=== PATIENT | female | born 1945 | race African-American/Black ===

== ENCOUNTER 2016-08-21 03:58 | Emergency (ER) | payer MEDICARE, OTHER ==
[~2016-08-21] VITALS: Ht 152.4 cm; Wt 67.6 kg
[~2016-08-21 03:58] MED LIST: ALBUTEROL SULF8.5 GM INH; ALDACTAZIDE 251 EACH ORAL; ASPIR-LOW81 MG ORAL; ASPIRIN325 MG ORAL; ATORVASTATIN CA80 MG ORAL; BENADRYL25 MG ORAL; CARVEDILOL12.5 MG ORAL; COREG25 MG ORAL; CYCLOBENZAPRINE10 MG ORAL; DIOVAN160 MG ORAL; DIOVAN320 MG ORAL; DIOVAN80 MG ORAL; DOXAZOSIN MESYLA1 MG ORAL; GABAPENTIN300 MG ORAL; GLIPIZIDE5 MG ORAL; GUANFACINE HCL1 MG PO; IBUPROFEN600 MG ORAL; JANUVIA100 MG ORAL; KENALOG 0.1% LO60 ML APPLIC; LANTUS SOL100 UNIT/1 SUBQ; MEDROL DOSEPAK4 MG ORAL; METFORMIN HCL500 M1 ORAL; NITROFURANTOIN100 M2 ORAL; OMEPRAZOLE20 M3 ORAL; ROBAXIN500 MG PO; SPIRONOLACTONE1 EACH ORAL; STARLIX60 MG ORAL; TENEX2 MG PO; TRADJENTA5 MG PO; TRAMADOL HCL50 MG ORAL; ZITHROMAX250 MG ORAL
[2016-08-21] MEDS ORDERED: Morphine Sulfate 10mg/ml Inj IM ONE (04:30)
--- NOTE | 2016-08-21 05:02 | Emergency Room Report ---
History of Present Illness General Chief Complaint: Lower Back Pain or Injury Source: Patient Present Illness HPI Patient presents with complaints of right lower back pain Points the right posterior superior iliac crest for the discomfort Pain has come on over the past several days slowly Worse with bending forward Describes as 4/10 Denies any chest pain or shortness of breath denies any loss of control of bowel urination Denies any saddle paresthesia Patient reports taking Otto, and Tylenol Extra Strength without much relief Allergies: Coded Allergies: ASHWIN INHIBITORS (Unverified Allergy, Unknown, 03/14/16) PENICILLINS (Verified Allergy, Unknown, 08/21/16) Uncoded Allergies: CALCIUM CHANNEL BLOCKERS (Allergy, Unknown, 03/14/16) DIHYDROPYRIDINES (Allergy, Unknown, 03/14/16) Patient History Past Medical History: see triage record Pertinent Family History: none Last Menstrual Period: n/a Reviewed Nursing Documentation: PMH: Agreed, PSxH: Agreed Nursing Documentation-PMH Hx Cardiac Problems: Yes - DVT(Rt leg), IVC filter insertion in 11/2014 Hx Hypertension: Yes Hx Diabetes: Yes Hx Gastrointestinal Problems: No - Fibroid removal in 1979 Review of Systems All Other Systems: negative except mentioned in HPI Physical Exam Vital Signs Date Time Temp Pulse Resp B/P Pulse Ox O2 Delivery O2 Flow Rate FiO2 08/21/16 04:11 98.6 86 16 182/92 98 Room Air Sp02 EP Interpretation: reviewed, normal General Appearance: well appearing, no apparent distress Head: normocephalic, atraumatic Eyes: bilateral eye EOMI, bilateral eye PERRL ENT: hearing grossly normal, normal pharynx, TMs + canals normal, uvula midline Neck: full range of motion, supple, no meningismus, no bony tend Respiratory: lungs clear, normal breath sounds, no rhonchi, no respiratory distress, no retraction, no accessory muscle use Cardiovascular #1: normal peripheral pulses, regular rate, rhythm, no edema, no gallop, no JVD, no murmur Gastrointestinal: normal bowel sounds, non tender, soft, no mass, no organomegaly, non-distended, no guarding, no hernia, no pulsatile mass, no rebound Genitourinary: no CVA tenderness Musculoskeletal: other - Discomfort on palpation of the right posterior superior iliac crest, no obvious midline step-offs patient ambulating without focal deficit, Neurologic: oriented x3, responsive, motor strength/tone normal, sensory intact Psychiatric: mood/affect normal Skin: normal color, no rash, warm/dry, palpation normal Lymphatic: normal inspection, no adenopathy Medical Decision Making Diagnostic Impression: Primary Impression: Low back pain Additional Impression: Sciatica ER Course Given the patient's each and presentation multiple differentials are considered Including but not limited to vascular, her surgical pathology Patient however has a benign clinical examination She has had several presentations with arthralgia and other pain syndrome I did discuss more appropriate pain management as an outpatient with the patient she does agree with that as well At this time reports that she was given morphine last time she was in the ER which did help her And she is otherwise stable for close outpatient followup after appropriate imaging in the ER CT/MRI/US Diagnostic Results CT/MRI/US Diagnostic Results : Impression CT pelvic: No obvious acute fracture Last Vital Signs Date Time Temp Pulse Resp B/P Pulse Ox O2 Delivery O2 Flow Rate FiO2 08/21/16 04:11 98.6 86 16 182/92 98 Room Air Status: improved Disposition: HOME, SELF-CARE Condition: Improved Scripts Prednisone* (PREDNISONE*) 20 Mg Tablet 20 MG ORAL BID, #8 TAB Prov: KENNA SALAS D.O. 08/21/16 Tramadol Hcl* (ULTRAM*) 50 Mg Tablet 50 MG ORAL Q6H Y for For Pain, #12 TAB 0 Refills Prov: KENNA SALAS D.O. 08/21/16 Methocarbamol* (ROBAXIN-750*) 750 Mg Tablet 750 MG PO TID, #21 TAB 0 Refills Prov: KENNA SALAS D.O. 08/21/16 Referrals: NON PHYSICIAN (PCP) Additional Instructions: Patient is provided with the discharge instructions notified to follow up with primary doctor in the next 2-3 days otherwise return to the er with any worsening symptoms. KENNA SALAS D.O. Aug 21, 2016 05:02
[2016-08-21 05:11] VITALS: BP 162/84
[2016-08-21] MEDS ORDERED: PredniSONE 20mg tab ORAL ONE (05:30)
[2016-08-21] MEDS ORDERED: Diazepam 10mg/2ml Inj IM ONE (05:30)
[2016-08-21] MEDS ORDERED: ROBAXIN-750750 MG PO (05:53)
[2016-08-21] MEDS ORDERED: TRAMADOL HCL50 MG ORAL (05:53)
[2016-08-21] MEDS ORDERED: PREDNISONE20 MG ORAL (05:53)
[2016-08-21 06:00] VITALS: BP 145/97
[2016-08-21 06:03] VITALS: BP 145/97
--- NOTE | 2016-08-21 09:46 | Diagnostic Imaging Report ---
Indication: Pelvic pain. No trauma Technique: Continuous helical transaxial imaging of the pelvis was obtained from the iliac crest to the pubic symphysis. Coronal 2-D reformats were also obtained. Study obtained in a Siemens sensation [address] Total Dose length Product (DLP): [address] Dose Index Volume (CTDIvol): 21 mGy Comparison: None Findings: Diverticula noted within the colon. Some limitation on this study due to nonadministration of IV and oral contrast material. No free fluid or free air identified. Urinary bladder is nondistended. Uterus may be atrophic or partially removed. Of note acute fracture is identified. No malalignment of the hips seen. Impression: No acute findings identified for nonspecified pelvic pain. [facility] has communicated the preliminary results to the Emergency Department. Their findings are largely concordant with this report.
== END 2016-08-21 06:03 | disposition home or self-care (01) ==
LOC: EMR 04:22
DX: M54.40 Lumbago with sciatica, unspecified side (principal); I10 Essential (primary) hypertension; E11.9 Type 2 diabetes mellitus without complications; Z86.718 Personal history of other venous thrombosis and embolism; Z88.0 Allergy status to penicillin; Z88.8 Allergy status to other drugs, medicaments and biological substances
CPT/HCPCS: 72192; 96372; 99284; J2270; J3360

== ENCOUNTER 2017-01-22 19:19 | Emergency (ER) | payer MEDICARE, OTHER ==
[~2017-01-22] VITALS: Ht 152.4 cm; Wt 68.0 kg
[~2017-01-22 19:19] MED LIST changes: +PREDNISONE20 MG ORAL; +ROBAXIN-750750 MG PO
[2017-01-22 19:25] VITALS: BP 182/101
--- NOTE | 2017-01-22 20:29 | Emergency Room Report ---
History of Present Illness General Chief Complaint: Back Pain-No Injury Present Illness HPI 71 YO Female presents to the ED c/o 05/20 right upper back pain x 2 days. pt states pain radiates up into the right side of the neck and is worsened with looking down or twisting her head. pt. denies trauma or fall, denies midline spinal pain, denies KEMP, fevers, chills or recent illness. pt. states she was taking care of her 1 YO grandchild this past week. pt. states pain is also exacerbated with touch along the right side of her upper back and some movements of the right arm. denies erythema, bruises, or rash. pt has hx of DM, HTN, IV filter. pt. denies SOB, or dyspnea. pt. states she took tylenol at 11am and her pain was moderately relieved but returned again this evening. describes pain as aching with some sharp character with certain movements. denies abdominal pain, N/V. Denies numbness tingling or loss of sensation or gross motor movements of the extremities, incontinence of bowel or bladder. Denies CP , Palpitations, LOC, AMS, dizziness, Changes in Vision, Sensation, paresthesias , or a sudden severe headache. Allergies: Coded Allergies: ASHWIN INHIBITORS (Unverified Allergy, Unknown, 01/22/17) CALCIUM CHANNEL BLOCKING AGENTS-DIH (Verified Allergy, Unknown, 01/22/17) PENICILLINS (Verified Allergy, Unknown, 01/22/17) Uncoded Allergies: CALCIUM CHANNEL BLOCKERS (Allergy, Unknown, 03/14/16) DIHYDROPYRIDINES (Allergy, Unknown, 03/14/16) Patient History Past Medical History: see triage record Past Surgical History: none Pertinent Family History: none Last Menstrual Period: n/a Now: No Reviewed Nursing Documentation: PMH: Agreed, PSxH: Agreed Nursing Documentation-PMH Hx Cardiac Problems: Yes - DVT(Rt leg), IVC filter insertion in 11/2014 Hx Hypertension: Yes Hx Diabetes: Yes Hx Gastrointestinal Problems: No - Fibroid removal in 1979 Physical Exam is Vital Signs Date Time Temp Pulse Resp B/P Pulse Ox O2 Delivery O2 Flow Rate FiO2 01/22/17 19:21 98.8 74 16 182/101 95 01/22/17 19:25 Room Air Sp02 EP Interpretation: reviewed, abnormal - elevated BP General Appearance: no apparent distress, alert, GCS 15, non-toxic Head: normocephalic, atraumatic Eyes: bilateral eye PERRL, bilateral eye normal inspection ENT: hearing grossly normal, normal pharynx, no angioedema, normal voice Neck: full range of motion, supple/symm/no masses Respiratory: chest non-tender, lungs clear, normal breath sounds, no respiratory distress, no wheezing, speaking full sentences Cardiovascular #1: regular rate, rhythm, no edema, normal capillary refill Gastrointestinal: non tender, soft, no guarding Rectal: deferred Genitourinary: normal inspection, no CVA tenderness Musculoskeletal: back normal, gait/station normal, normal range of motion, tender - moderate tenderness along the right sided musculature of the upper back and lower neck, no midline bony pain, no obvious deformities, Neurologic: alert, oriented x3, responsive, motor strength/tone normal, sensory intact, cerebellar normal, normal gait, speech normal Psychiatric: judgement/insight normal, memory normal, mood/affect normal Skin: normal color, no rash, warm/dry, well hydrated Lymphatic: no adenopathy Medical Decision Making PA Attestation Dr. Lindsey is my supervising Physician whom patient management has been discussed with. Diagnostic Impression: Primary Impression: Muscle strain of right upper back Qualified Codes: S29.012A - Strain of muscle and tendon of back wall of thorax , initial encounter ER Course Pt. presents to the ED c/o right sided upper back pain described as "soreness, and tightness" -pt. states she was taking care of her 1 YO grandchild this past week. Ddx considered but are not limited to Fracture, dislocation, contusion, cardiac event, PE, aortic dissection. epidural abscess, Sprain/Strain/Spasm Vital signs: are WNL, pt. is afebrile H&PE are most consistent with muscle spasm/strain, moderate tenderness along the right sided musculature of the upper back and lower neck, no midline bony pain, no obvious deformities, lungs are CTA. Pt. is non-toxic in appearance in otherwise NAD when sitting in chair. reproducible pain is most suspicious for muscular etiology. I do not suspect PE, or cardiac cause at this time. ORDERS: none required at this time. ED INTERVENTIONS: -Tylenol PO *CURES: only rx was in August for small qty of tramadol. DISCHARGE: At this time pt. is stable for d/c to home. Will provide printed patient care instructions, and any necessary prescriptions. Care plan and follow up instructions have been discussed with the patient prior to discharge. Last Vital Signs Date Time Temp Pulse Resp B/P Pulse Ox O2 Delivery O2 Flow Rate FiO2 01/22/17 19:25 98.8 74 16 182/101 95 Room Air Disposition: HOME, SELF-CARE Condition: Stable Scripts Carisoprodol (SOMA) 250 Mg Tablet 250 MG PO ONCE, #1 TAB Prov: Reva Lassiter 01/22/17 Acetaminophen* (TYLENOL EXTRA STRENGTH*) 500 Mg Tablet 500 MG ORAL Q6H, #20 TAB 0 Refills Prov: Reva Lassiter 01/22/17 Cyclobenzaprine Hcl* (FLEXERIL*) 10 Mg Tablet 10 MG ORAL THREE TIMES A DAY for 7 Days, #21 TAB Prov: Reva Lassiter 01/22/17 Patient Instructions: Back Pain, Adult Additional Instructions: Take medications as directed. Follow up with PCP in 3 days Return sooner to ED if new symptoms occur, or current symptoms become worse. Do not drink alcohol, drive, or operate heavy machinery while taking Muscle Relaxer as this may cause drowsiness. - Please note that this Emergency Department Report was dictated using [employer] technology software, occasionally this can lead to erroneous entry secondary to interpretation by the dictation equipment. Reva Lassiter Jan 22, 2017 20:29
[2017-01-22] MEDS ORDERED: TYLENOL EXTRA500 MG ORAL (20:34)
[2017-01-22] MEDS ORDERED: SOMA250 MG PO (20:34)
[2017-01-22] MEDS ORDERED: CYCLOBENZAPRINE10 MG ORAL (20:34)
[2017-01-22 20:50] VITALS: BP 170/90
== END 2017-01-22 20:50 | disposition home or self-care (01) ==
LOC: EMR 19:55
DX: S29.012A Strain of muscle and tendon of back wall of thorax, initial encounter (principal); E11.9 Type 2 diabetes mellitus without complications; I10 Essential (primary) hypertension; X58.XXXA Exposure to other specified factors, initial encounter; Y93.9 Activity, unspecified; Y92.9 Unspecified place or not applicable; Z88.0 Allergy status to penicillin; Z88.8 Allergy status to other drugs, medicaments and biological substances; Z86.718 Personal history of other venous thrombosis and embolism
CPT/HCPCS: 99284

== ENCOUNTER 2017-01-24 19:56 | Emergency (ER) | payer MEDICARE, OTHER ==
[~2017-01-24] VITALS: Ht 152.4 cm; Wt 68.0 kg
[~2017-01-24 19:56] MED LIST changes: +SOMA250 MG PO; +TYLENOL EXTRA500 MG ORAL
[2017-01-24 20:28] VITALS: BP 167/105
[2017-01-24] MEDS ORDERED: Ketorolac 30mg Inj IM ONE (20:30)
[2017-01-24 21:10] VITALS: BP 167/105
--- NOTE | 2017-01-25 12:07 | Emergency Room Report ---
History of Present Illness General Chief Complaint: Neck Pain Present Illness HPI The patient is a 71-year-old female with a history of chronic back pain presenting with left-sided neck pain. The patient was seen in this emergency department yesterday for the same complaint and given a prescription for Tylenol and Flexeril. She states that these medications have not been helping. Pain began 3 days prior for no known reason. She denies any injury. Described as a 10 out of 10 dull ache and does not radiate. Pain worse with movement of the head. She denies other symptoms including headache, nausea, vomiting, fever, chills, rash, dizziness, chest pain or shortness of breath Allergies: Coded Allergies: ASHWIN INHIBITORS (Unverified Allergy, Unknown, 01/22/17) CALCIUM CHANNEL BLOCKING AGENTS-DIH (Verified Allergy, Unknown, 01/22/17) PENICILLINS (Verified Allergy, Unknown, 01/22/17) Uncoded Allergies: CALCIUM CHANNEL BLOCKERS (Allergy, Unknown, 03/14/16) DIHYDROPYRIDINES (Allergy, Unknown, 03/14/16) Patient History Past Medical History: see triage record Pertinent Family History: none Reviewed Nursing Documentation: PMH: Agreed, PSxH: Agreed Nursing Documentation-PMH Hx Cardiac Problems: Yes - DVT(Rt leg), IVC filter insertion in 11/2014 Hx Hypertension: Yes Hx Diabetes: Yes Hx Gastrointestinal Problems: No - Fibroid removal in 1979 Review of Systems All Other Systems: negative except mentioned in HPI Physical Exam Vital Signs Date Time Temp Pulse Resp B/P Pulse Ox O2 Delivery O2 Flow Rate FiO2 01/24/17 19:59 98.4 77 16 167/105 97 Room Air Sp02 EP Interpretation: reviewed, normal General Appearance: no apparent distress, alert, GCS 15, non-toxic Head: normocephalic, atraumatic Eyes: bilateral eye PERRL, bilateral eye normal inspection ENT: hearing grossly normal, no angioedema, normal voice, uvula midline Neck: supple, no bony tend, tender lateral - TTP over the L lateral paraspinous muscles Respiratory: chest non-tender, lungs clear, normal breath sounds, no wheezing, speaking full sentences Musculoskeletal: back normal, gait/station normal, normal range of motion Neurologic: alert, oriented x3, responsive, motor strength/tone normal, sensory intact, normal gait, speech normal Psychiatric: judgement/insight normal, memory normal, mood/affect normal, no suicidal/homicidal ideation Reflexes: 3+ bicep (R), 3+ bicep (L), 3+ tricep (R), 3+ tricep (L), 3+ knee (R) , 3+ knee (L) Skin: normal color, no rash, warm/dry, well hydrated Lymphatic: no adenopathy Medical Decision Making PA Attestation Dr. Mcfarlane is my supervising physician. Patient management was discussed with my supervising physician Diagnostic Impression: Primary Impression: Muscle spasm ER Course The patient is a 71-year-old female with a history of chronic back pain presenting with left-sided neck pain Differential diagnoses considered but not limited to: Cervical strain, disc herniation, fracture, muscle spasm PE: afebrile. NAD Neck is soft and supple. Tenderness to palpation over paraspinous muscles only. No midline tenderness. Findings are consistent with muscle spasm Patient is given Toradol and soma and is feeling better. She will continue to take the prescribed medications from yesterday and will use a hot pack. ER precautions given Last Vital Signs Date Time Temp Pulse Resp B/P Pulse Ox O2 Delivery O2 Flow Rate FiO2 01/24/17 21:10 98.4 16 167/105 97 Room Air 01/24/17 19:59 77 Status: improved Disposition: HOME, SELF-CARE Condition: Improved Referrals: JENNIFER SAEED (PCP) Patient Instructions: Muscle Strain, [id number], Heat Therapy Additional Instructions: I discussed my findings with the patient. All questions and concerns have been answered. Treatment and medication compliance have been addressed. I advised the patient that they need to follow up with PMD in 3-5 days. Return to ED if pain remains or worsens, numbness or tingling occurs, new rash is noticed, fever is noticed, or if needed for any reason. Patient verbalized understanding of discharge instructions. Take the previously prescribed medications as directed FARHAN CARR Jan 25, 2017 12:07
== END 2017-01-24 21:15 | disposition home or self-care (01) ==
LOC: EMR 21:15
DX: M62.838 Other muscle spasm (principal); G89.29 Other chronic pain; M54.9 Dorsalgia, unspecified; I10 Essential (primary) hypertension; E11.9 Type 2 diabetes mellitus without complications; Z86.718 Personal history of other venous thrombosis and embolism; Z88.0 Allergy status to penicillin; Z88.8 Allergy status to other drugs, medicaments and biological substances
CPT/HCPCS: 96372; 99283; J1885

== ENCOUNTER 2017-02-03 19:26 | Emergency (ER) | payer MEDICARE, OTHER ==
[~2017-02-03] VITALS: Ht 152.4 cm; Wt 68.0 kg
[2017-02-03] MEDS ORDERED: TRAMADOL HCL50 MG ORAL (20:12)
[2017-02-03] MEDS ORDERED: Morphine Sulfate 4mg/ml Inj IM ONE (20:15)
[2017-02-03 20:23] VITALS: BP 150/85
--- NOTE | 2017-02-04 15:29 | Emergency Room Report ---
History of Present Illness General Chief Complaint: Pain Source: Patient Present Illness HPI 71-year-old female presents ED complaining of back pain. Notes pain to the last several days. Complaining of pain in the right hip radiating to the lower back. 8/10, throbbing. Worse with twisting and bending. No other aggravating or relieving factors. Patient notes chronic history of back pain has been here multiple times for exacerbation of back pain. States the last medications were prescribed were not helping. No other aggravating or relieving factors. Denies any other associated symptoms Allergies: Coded Allergies: ASHWIN INHIBITORS (Unverified Allergy, Unknown, 01/22/17) CALCIUM CHANNEL BLOCKING AGENTS-DIH (Verified Allergy, Unknown, 01/22/17) PENICILLINS (Verified Allergy, Unknown, 01/22/17) Uncoded Allergies: CALCIUM CHANNEL BLOCKERS (Allergy, Unknown, 03/14/16) DIHYDROPYRIDINES (Allergy, Unknown, 03/14/16) Patient History Past Medical History: other - DVT Past Surgical History: other - IVC filter Pertinent Family History: none Social History: Denies: alcohol use, drug use, smoking Now: No Immunizations: UTD Reviewed Nursing Documentation: PMH: Agreed, PSxH: Agreed Nursing Documentation-PMH Hx Cardiac Problems: Yes - DVT(Rt leg), IVC filter insertion in 11/2014 Hx Hypertension: Yes Hx Diabetes: Yes Hx Gastrointestinal Problems: No - Fibroid removal in 1979 Review of Systems All Other Systems: negative except mentioned in HPI Physical Exam Vital Signs Date Time Temp Pulse Resp B/P Pulse Ox O2 Delivery O2 Flow Rate FiO2 02/03/17 19:34 98.2 86 18 153/101 98 Room Air Sp02 EP Interpretation: reviewed, normal General Appearance: no apparent distress, alert, GCS 15, non-toxic Head: normocephalic Eyes: bilateral eye PERRL, bilateral eye normal inspection ENT: normal ENT inspection Neck: normal inspection Respiratory: normal inspection Cardiovascular #1: normal inspection Gastrointestinal: normal inspection Rectal: deferred Genitourinary: no CVA tenderness Musculoskeletal: tender - Paraspinal lumbar tenderness Neurologic: alert, oriented x3, responsive, motor strength/tone normal, sensory intact, speech normal Psychiatric: normal inspection Skin: normal inspection Lymphatic: normal inspection Medical Decision Making Diagnostic Impression: Primary Impression: Low back pain Qualified Codes: M54.41 - Lumbago with sciatica, right side; G89.29 - Other chronic pain ER Course Hospital Course 71-year-old female presents ED complaining of lower back pain. No evidence of trauma Differential diagnoses include: pyelonephritis, kidney stone, muscle strain, Lspine fracture Clinical course Patient placed on stretcher. After initial history physical exam reveals an elderly female in no acute distress. There is pain in the right hip radiating through right lower back. No vertebral body tenderness. Negative straight leg raise. 5 out of 5 motor strength Patient has been here recently for pain medication. Was prescribed Tylenol and Flexeril without significant relief. I reviewed patient's medications on CURES ; there is not a history of narcotic abuse Agreed to provide her with tramadol which has worked well for her in the past. Given morphine IM in ED and on reassessment pain is improved Diagnosis - back pain Stable and discharged to home with prescription for tramadol. Followup with PMD. Return to ED if symptoms recur or worsen Last Vital Signs Date Time Temp Pulse Resp B/P Pulse Ox O2 Delivery O2 Flow Rate FiO2 02/03/17 20:23 98.0 85 16 150/85 99 Room Air Status: improved Disposition: HOME, SELF-CARE Condition: Stable Scripts Tramadol Hcl* (ULTRAM*) 50 Mg Tablet 50 MG ORAL Q6H Y for For Pain, #30 TAB 0 Refills Prov: SETH MANE M.D. 02/03/17 Referrals: NON PHYSICIAN (PCP) Patient Instructions: Back Pain, Adult, [id number] SETH MANE M.D. Feb 04, 2017 15:29
== END 2017-02-03 20:23 | disposition home or self-care (01) ==
LOC: EMR 20:08
DX: M54.5 Low back pain (principal); Z86.718 Personal history of other venous thrombosis and embolism; Z88.0 Allergy status to penicillin; Z88.8 Allergy status to other drugs, medicaments and biological substances; I10 Essential (primary) hypertension; E11.9 Type 2 diabetes mellitus without complications
CPT/HCPCS: 96372; 99283; J2270

== ENCOUNTER 2017-04-20 13:55 | Emergency (ER) | payer MEDICARE, OTHER ==
[~2017-04-20] VITALS: Ht 152.4 cm; Wt 67.1 kg
[2017-04-20 14:10] VITALS: BP 157/94
[2017-04-20] MEDS ORDERED: EPIPEN 2-P0.3 MG/0.3 IM (14:25)
[2017-04-20] MEDS ORDERED: PREDNISONE20 MG ORAL (14:25)
[2017-04-20 14:33] VITALS: BP 157/94
--- NOTE | 2017-04-20 14:51 | Emergency Room Report ---
History of Present Illness General Chief Complaint: Allergic Reaction Source: Patient Present Illness HPI 72YOF walk-in with 2-3 days intermittent left upper lip swelling, rash on left upper arm Restarted Doxazosin 2 weeks ago. Has been on before Has been on Losartan for years. Per EMR, known history of allergic Rx to ACEi and CCB Denies chest pain, SOB, tongue swelling, difficulty swallowing Went to pharmacy last night, got Rx for benadryl which helped her symptoms Allergies: Coded Allergies: ASHWIN INHIBITORS (Unverified Allergy, Unknown, 01/22/17) CALCIUM CHANNEL BLOCKING AGENTS-DIH (Verified Allergy, Unknown, 01/22/17) PENICILLINS (Verified Allergy, Unknown, 01/22/17) Uncoded Allergies: CALCIUM CHANNEL BLOCKERS (Allergy, Unknown, 03/14/16) DIHYDROPYRIDINES (Allergy, Unknown, 03/14/16) Patient History Past Medical History: HTN Past Surgical History: none Pertinent Family History: none Social History: Denies: smoking, alcohol use, drug use Now: No Immunizations: UTD Reviewed Nursing Documentation: PMH: Agreed, PSxH: Agreed Nursing Documentation-PMH Past Medical History: No History, Except For Hx Cardiac Problems: Yes - DVT(Rt leg), IVC filter insertion in 11/2014 Hx Hypertension: Yes Hx Diabetes: Yes Hx Gastrointestinal Problems: No - Fibroid removal in 1979 Review of Systems All Other Systems: negative except mentioned in HPI Physical Exam Vital Signs Date Time Temp Pulse Resp B/P (MAP) Pulse Ox O2 Delivery O2 Flow Rate FiO2 04/20/17 13:58 98.1 76 20 157/94 94 Room Air Sp02 EP Interpretation: reviewed, normal General Appearance: normal inspection, well appearing, no apparent distress, alert, GCS 15, non-toxic Head: normocephalic, atraumatic Eyes: bilateral eye PERRL, bilateral eye EOMI ENT: normal ENT inspection, hearing grossly normal, normal voice, TMs + canals normal, uvula midline, moist mucus membranes, other - Mild left upper lip swelling Neck: normal inspection, full range of motion, supple, no bony tend Respiratory: normal inspection, lungs clear, normal breath sounds, no respiratory distress, no retraction, no wheezing Cardiovascular #1: regular rate, rhythm, no edema Gastrointestinal: normal inspection, normal bowel sounds, non tender, soft, no guarding, no hernia Genitourinary: no CVA tenderness Musculoskeletal: normal inspection, back normal, normal range of motion, Dalton' s Sign negative Neurologic: normal inspection, alert, responsive, speech normal Psychiatric: normal inspection, judgement/insight normal, mood/affect normal Skin: normal inspection, normal color, no rash, warm/dry Lymphatic: normal inspection Medical Decision Making Diagnostic Impression: Primary Impression: Allergic reaction Qualified Codes: T78.40XA - Allergy, unspecified, initial encounter Additional Impression: Hypertension Qualified Codes: I10 - Essential (primary) hypertension ER Course VSS. Afebrile Airway patent Mild allergic reaction Lungs CTAB, no wheezing No bruits Gave prednisone here Rx Prednisone, epi pen D/w patient possibility of adding new HTN medication to her spironolactone/ carvedilol regimen but she is allergic to CCBs and states HCTZ wasnt effective in past Effectively leaves us with minimal if any options to change it States her PMD is "out of town" for the month and there is no covering doc Advised her to stick with remaining 2 BP meds and monitor BP, return to ER for severe headache, chest pain, SOB Advised to return also for severe reaction, call 911, inject epi Last Vital Signs Date Time Temp Pulse Resp B/P (MAP) Pulse Ox O2 Delivery O2 Flow Rate FiO2 04/20/17 14:33 98.1 20 157/94 94 Room Air 04/20/17 13:58 76 Status: improved Disposition: HOME, SELF-CARE Condition: Improved Scripts Epinephrine (Epipen 2-Guero) 0.3 Mg/0.3 Ml Auto.injct 0.3 MG IM ONCE for severe allergic reaction for 1 Day, #2 EA Prov: LANETTE TODD M.D. 04/20/17 Prednisone* (PREDNISONE*) 20 Mg Tablet 40 MG ORAL DAILY for 3 Days, #6 TAB Prov: LANETTE TODD M.D. 04/20/17 Patient Instructions: Angioedema, [id number] Additional Instructions: - STOP Doxazosin, Losartan - Follow up with Dr Munson to decide on possible new regimen to treat high BP - ONLY take Spironolactone and Carvedilol for BP now - Return to ER for severe headache, dizziness, chest pain or shortness of breath - Next 3 days take Prednisone in the morning - Take benadryl as needed for itch, swelling of tongue/lips - Inject yourself with EPI pen for severe allergic reaction and call 911 LANETTE TODD M.D. Apr 20, 2017 14:51
== END 2017-04-20 14:33 | disposition home or self-care (01) ==
LOC: EMR 14:20
DX: T78.40XA Allergy, unspecified, initial encounter (principal); X58.XXXA Exposure to other specified factors, initial encounter; R21 Rash and other nonspecific skin eruption; R60.0 Localized edema; I10 Essential (primary) hypertension; Z88.0 Allergy status to penicillin; Z88.8 Allergy status to other drugs, medicaments and biological substances; Z86.718 Personal history of other venous thrombosis and embolism
CPT/HCPCS: 96372; 99284

== ENCOUNTER 2017-07-30 21:26 | Emergency (ER) | payer MEDICARE, OTHER ==
[~2017-07-30] VITALS: Ht 152.4 cm; Wt 67.6 kg
[~2017-07-30 21:26] MED LIST changes: +EPIPEN 2-P0.3 MG/0.3 IM
[2017-07-30] MEDS ORDERED: TRULICITY0.75 MG/0. SQ (21:38)
[2017-07-30] MEDS ORDERED: GUANFACINE HCL1 MG PO (21:38)
[2017-07-30 21:43] VITALS: BP 173/101
[2017-07-30] MEDS ORDERED: ACETAMINOPHEN-1 EAC1 ORAL (22:09)
[2017-07-30] MEDS ORDERED: CLINDAMYCIN HC300 MG ORAL (22:11)
[2017-07-30] MEDS ORDERED: Bactrim DS (160mg/800mg) tab ORAL ONE (22:15)
[2017-07-30] MEDS ORDERED: Tylenol #3 tab (300mg/30mg) ORAL ONE (22:15)
[2017-07-30 22:20] VITALS: BP 173/101
--- NOTE | 2017-07-30 22:36 | Emergency Room Report ---
History of Present Illness General Chief Complaint: Pain Source: Patient Present Illness HPI [id number] with 1 day of pain/swelling to left elbow No trauma, bites, wounds No history of gout Does have history of arthritis Denies fever/chills Took motrin 600mg twice yesterday with some improvement Pain with full extension of elbow Allergies: Coded Allergies: ASHWIN INHIBITORS (Unverified Allergy, Unknown, 01/22/17) CALCIUM CHANNEL BLOCKING AGENTS-DIH (Verified Allergy, Unknown, 01/22/17) PENICILLINS (Verified Allergy, Unknown, 01/22/17) Uncoded Allergies: CALCIUM CHANNEL BLOCKERS (Allergy, Unknown, 03/14/16) DIHYDROPYRIDINES (Allergy, Unknown, 03/14/16) Patient History Past Medical History: HTN Past Surgical History: none Pertinent Family History: none Social History: Denies: smoking, alcohol use, drug use Now: No Immunizations: UTD Reviewed Nursing Documentation: PMH: Agreed, PSxH: Agreed Nursing Documentation-PMH Hx Cardiac Problems: Yes - DVT(Rt leg), IVC filter insertion in 11/2014 Hx Hypertension: Yes Hx Diabetes: Yes Hx Gastrointestinal Problems: No - Fibroid removal in 1979 Review of Systems All Other Systems: negative except mentioned in HPI Physical Exam Vital Signs Date Time Temp Pulse Resp B/P (MAP) Pulse Ox O2 Delivery O2 Flow Rate FiO2 07/30/17 21:31 97.5 81 18 173/101 99 Room Air Sp02 EP Interpretation: reviewed, normal General Appearance: normal inspection, well appearing, no apparent distress, alert, GCS 15, non-toxic Head: normocephalic, atraumatic Eyes: bilateral eye PERRL, bilateral eye EOMI ENT: normal ENT inspection, hearing grossly normal, normal pharynx, no angioedema, normal voice, TMs + canals normal, uvula midline, moist mucus membranes Neck: normal inspection, full range of motion, supple, thyroid normal, no meningismus, no bony tend Respiratory: normal inspection, lungs clear, normal breath sounds, no rhonchi, no respiratory distress, no retraction, no accessory muscle use, no wheezing, speaking full sentences Cardiovascular #1: regular rate, rhythm, no edema, no JVD, normal capillary refill Gastrointestinal: normal inspection, normal bowel sounds, non tender, soft, no mass, no peritonitis, non-distended, no guarding, no hernia, no pulsatile mass Genitourinary: no CVA tenderness Musculoskeletal: normal inspection, back normal, normal range of motion, no calf tenderness, pelvis stable, Dalton's Sign negative, other - Left elbow: mild erythema on dorsum, some swelling. Hard to tell if in joint or on skin because patient hypersensitive to any palpation. No signs of trauma or wounds Neurologic: normal inspection, alert, oriented x3, responsive, char filter tank tender head III-XII nml as tested, motor strength/tone normal, cerebellar normal, normal gait, speech normal Psychiatric: normal inspection, judgement/insight normal, mood/affect normal, no suicidal/homicidal ideation, no delusions Skin: normal inspection, normal color, no rash Lymphatic: normal inspection, no adenopathy Medical Decision Making Diagnostic Impression: Primary Impression: Elbow pain Qualified Codes: M25.522 - Pain in left elbow ER Course Left elbow pain atraumatic Difficult to discern if cellulitis vs gout given pain with elbow movement Will treat for both Has motrin at home, encouraged to keep taking Tylenol #3 as needed for breakthru pain Abx clinda given allergy to Keflex and cant take bactrim because on ARB ER course: Patient has remained stable during ED stay. Patient is to be discharged to home. Prescriptions given are clindamycin, T#3 Patient is instructed to follow up with their primary care doctor within 5 days. Strict return precautions discussed with patient such as fever, chills, worsening/severe pain, nausea, vomiting, which may indicate severe illness. Patient verbalizes understanding and agrees with plan. Please note that this Emergency Department Report was dictated using [employer] talc and borate supervisor technology software, occasionally this can lead to erroneous entry secondary to interpretation by the dictation equipment Last Vital Signs Date Time Temp Pulse Resp B/P (MAP) Pulse Ox O2 Delivery O2 Flow Rate FiO2 07/30/17 21:43 97.5 81 18 173/101 99 Room Air Status: improved Disposition: HOME, SELF-CARE Condition: Improved Scripts Clindamycin Hcl (CLINDAMYCIN HCL) 300 Mg Capsule 300 MG ORAL THREE TIMES A DAY for 7 Days, #21 CAP Prov: LANETTE TODD M.D. 07/30/17 Acetaminophen With Codeine (T#3) (TYLENOL #3 TAB*) Y Tab 1 TAB ORAL Q8H Y for elbow pain for 7 Days, #20 TAB Prov: LANETTE TODD M.D. 07/30/17 Referrals: JENNIFER SAEED (PCP) Patient Instructions: Gout, [id number] Additional Instructions: - Continue taking the ibuprofen 600mg you have at home - 3x a day with food - for severe pain take Tylenol codeine - take all antibiotics until finished - followup with your doctor in 2-3 days LANETTE TODD M.D. Jul 30, 2017 22:36
== END 2017-07-30 22:20 | disposition home or self-care (01) ==
LOC: EMR 21:59
DX: M25.522 Pain in left elbow (principal); I10 Essential (primary) hypertension; E11.9 Type 2 diabetes mellitus without complications; Z86.718 Personal history of other venous thrombosis and embolism; Z88.0 Allergy status to penicillin; Z88.8 Allergy status to other drugs, medicaments and biological substances
CPT/HCPCS: 99283

== ENCOUNTER 2017-12-10 20:56 | Emergency (ER) | payer MEDICARE, OTHER ==
[~2017-12-10] VITALS: Ht 153 cm; Wt 66.7 kg
[~2017-12-10 20:56] MED LIST changes: +ACETAMINOPHEN-1 EAC1 ORAL; +CLINDAMYCIN HC300 MG ORAL; +TRULICITY0.75 MG/0. SQ
[2017-12-10 21:10] VITALS: BP 162/85
[2017-12-10] MEDS ORDERED: TRAMADOL HCL50 MG ORAL (21:20)
--- NOTE | 2017-12-10 21:21 | Emergency Room Report ---
History of Present Illness General Chief Complaint: Lower Back Pain or Injury Source: Patient Present Illness HPI This is a 72-year-old female with history of chronic back pain. She presents with chief complaint of lower back pain. Onset today after she attended a . She said it was too long that she was standing for too long. Pain going down her leg. Throbbing in nature. 7 out of 10. Her medication not helping. No nausea no vomiting. No fever or chills. No incontinence of bowel or urine. No trauma. Allergies: Coded Allergies: ASHWIN INHIBITORS (Unverified Allergy, Unknown, 01/22/17) CALCIUM CHANNEL BLOCKING AGENTS-DIH (Verified Allergy, Unknown, 01/22/17) PENICILLINS (Verified Allergy, Unknown, 01/22/17) Uncoded Allergies: CALCIUM CHANNEL BLOCKERS (Allergy, Unknown, 03/14/16) DIHYDROPYRIDINES (Allergy, Unknown, 03/14/16) Patient History Past Medical History: see triage record, old chart reviewed, DM, HTN Past Surgical History: other Pertinent Family History: none Social History: Denies: smoking Now: No Immunizations: other Reviewed Nursing Documentation: PMH: Agreed; PSxH: Agreed Nursing Documentation-PMH Past Medical History: No History, Except For Hx Cardiac Problems: Yes - DVT(Rt leg), IVC filter insertion in 11/2014 Hx Hypertension: Yes Hx Diabetes: Yes Hx Gastrointestinal Problems: No - Fibroid removal in 1979 Review of Systems Eye: Denies: eye pain, blurred vision ENT: Denies: ear pain, nose congestion, throat swelling Respiratory: Denies: cough, shortness of breath Cardiovascular: Denies: chest pain, palpitations Gastrointestinal: Denies: abdominal pain, diarrhea, nausea, vomiting Musculoskeletal: Reports: back pain; Denies: joint pain Skin: Denies: rash Neurological: Denies: headache, numbness Endocrine: Denies: increased thirst, increased urine Hematologic/Lymphatic: Denies: easy bruising All Other Systems: negative except mentioned in HPI Physical Exam Vital Signs Date Time Temp Pulse Resp B/P (MAP) Pulse Ox O2 Delivery O2 Flow Rate FiO2 12/10/17 20:58 98.1 98 16 162/85 96 Room Air 98.1 vitals with high blood pressure Sp02 EP Interpretation: reviewed, normal General Appearance: well appearing, no apparent distress, alert Head: normocephalic, atraumatic Eyes: bilateral eye PERRL, bilateral eye EOMI ENT: hearing grossly normal, normal pharynx Neck: full range of motion, supple, no meningismus Respiratory: chest non-tender, lungs clear, normal breath sounds Cardiovascular #1: regular rate, rhythm, no murmur Gastrointestinal: normal bowel sounds, non tender, no mass, no organomegaly, no bruit, non-distended Musculoskeletal: back normal - tenderness to the left lower lumbar area, gait/ station normal, normal range of motion Psychiatric: mood/affect normal Skin: warm/dry Medical Decision Making Diagnostic Impression: Primary Impression: Low back pain Qualified Codes: M54.5 - Low back pain ER Course Patient with lower back pain. No trauma to indicate fracture or dislocation. This is a chronic in nature. No evidence of cauda equina syndrome, spinal epidural abscess or neoplastic process. We'll discharge home. Last Vital Signs Date Time Temp Pulse Resp B/P (MAP) Pulse Ox O2 Delivery O2 Flow Rate FiO2 12/10/17 20:58 98.1 98 16 162/85 96 Room Air 98.1 Status: improved Disposition: HOME, SELF-CARE Condition: Stable Scripts Tramadol Hcl* (ULTRAM*) 50 Mg Tablet 50 MG ORAL Q6H PRN for For Pain, #20 TAB 0 Refills Prov: MORENO WHITFIELD M.D. 12/10/17 Patient Instructions: Back Pain, Adult Additional Instructions: Follow-up your doctor in 7 days. Return of worse. MORENO WHITFIELD M.D. December 10, 2017 21:21
[2017-12-10] MEDS ORDERED: Morphine Sulfate 4mg/ml Inj IM ONE (21:30)
[2017-12-10 21:43] VITALS: BP 162/85
[2017-12-11] MEDS ORDERED: TRAMADOL HCL50 MG ORAL (14:22)
[2017-12-11] MEDS ORDERED: LIDODERM700 M1 TOPIC (14:32)
== END 2017-12-10 21:50 | disposition home or self-care (01) ==
LOC: EMR 21:47
DX: M54.5 Low back pain (principal); I10 Essential (primary) hypertension; E11.9 Type 2 diabetes mellitus without complications; Z86.718 Personal history of other venous thrombosis and embolism
CPT/HCPCS: 96372; 99283; J2270

== ENCOUNTER 2017-12-11 12:54 | Emergency (ER) | payer MEDICARE, OTHER ==
[~2017-12-11] VITALS: Ht 160 cm; Wt 66.7 kg
[2017-12-11] MEDS ORDERED: Methocarbamol 500mg tab ORAL ONE (13:15)
[2017-12-11] MEDS ORDERED: traMADol 50mg tab ORAL ONE (13:15)
[2017-12-11] MEDS ORDERED: Ketorolac 60mg Inj IM ONE (13:30)
--- NOTE | 2017-12-11 14:12 | Emergency Room Report ---
History of Present Illness General Chief Complaint: Back Pain-No Injury Source: Patient, Medical Record Present Illness HPI 72-year-old female presents to the emergency department complaining of 8 out of 10 in severity left-sided low back pain that radiates down the left posterior thigh 3 days. Patient states that she was seen here in the emergency department yesterday however the pharmacy would not fill her prescription because it was not dictated by hand. Patient reports no changes in character of her symptoms from yesterday however she is requesting a "pain shot" denies trauma or fall, difficulty urinating, incontinence, paresthesias the inner thighs. She reports history of similar back pain episodes in the past. She denies recent spinal procedures or history of cancer she denies fevers or chills. Denies loss of gross motor movements of the extremities or incontinence. Allergies: Coded Allergies: ASHWIN INHIBITORS (Unverified Allergy, Unknown, 01/22/17) CALCIUM CHANNEL BLOCKING AGENTS-DIH (Verified Allergy, Unknown, 01/22/17) PENICILLINS (Verified Allergy, Unknown, 01/22/17) Uncoded Allergies: CALCIUM CHANNEL BLOCKERS (Allergy, Unknown, 03/14/16) DIHYDROPYRIDINES (Allergy, Unknown, 03/14/16) Patient History Past Medical History: see triage record Past Surgical History: none Pertinent Family History: none Now: No Reviewed Nursing Documentation: PMH: Agreed; PSxH: Agreed Nursing Documentation-PMH Past Medical History: No History, Except For Hx Cardiac Problems: Yes - DVT(Rt leg), IVC filter insertion in 11/2014 Hx Hypertension: Yes Hx Diabetes: Yes Hx Gastrointestinal Problems: No - Fibroid removal in 1979 Review of Systems All Other Systems: negative except mentioned in HPI Physical Exam Vital Signs Date Time Temp Pulse Resp B/P (MAP) Pulse Ox O2 Delivery O2 Flow Rate FiO2 12/11/17 13:07 98.2 92 16 175/92 98 Room Air 98.2 Sp02 EP Interpretation: reviewed, normal General Appearance: no apparent distress, alert, GCS 15, non-toxic Head: normocephalic, atraumatic ENT: hearing grossly normal, normal voice Neck: full range of motion Respiratory: lungs clear, normal breath sounds, speaking full sentences Cardiovascular #1: regular rate, rhythm, no edema Cardiovascular #2: 2+ dorsalis pedis (R) - posterior tibial., 2+ dorsalis pedis (L) - posterior tibial , both equal Rectal: deferred Genitourinary: normal inspection Musculoskeletal: back normal, gait/station normal, normal range of motion, tender - TTP to the left paraspinal musculature, to very superficial palpation. no obvious midline ttp, pt. has pain with standing and walking feels better sitting/lying down. Neurologic: alert, oriented x3, responsive, motor strength/tone normal, sensory intact, speech normal, grossly normal Psychiatric: judgement/insight normal Skin: normal color, no rash, warm/dry, well hydrated Medical Decision Making PA Attestation Dr. Mera is my supervising Physician whom patient management has been discussed with. Diagnostic Impression: Primary Impression: Back pain Qualified Codes: M54.42 - Lumbago with sciatica, left side ER Course 72-year-old female presents to the emergency department complaining of 8 out of 10 in severity left-sided low back pain that radiates down the left posterior thigh 3 days. Patient states that she was seen here in the emergency department yesterday however the pharmacy would not fill her prescription because it was not dictated by hand. Patient reports no changes in character of her symptoms from yesterday however she is requesting a "pain shot" denies trauma or fall, difficulty urinating, incontinence, paresthesias the inner thighs. She reports history of similar back pain episodes in the past. She denies recent spinal procedures or history of cancer she denies fevers or chills. Denies loss of gross motor movements of the extremities or incontinence. Ddx considered but are not limited to Fracture, dislocation, contusion, epidural abscess, Sprain/Strain/Spasm Vital signs: are WNL, pt. is afebrile H&PE are most consistent with sciatica- No evidence of cauda equina or neurological deficit. -Patient had normal evaluation yesterday here in the emergency department by Dr. Courtney. -- It appears Dr. Martinez wrote for tramadol however he did not take the prescription by hand. will re-rx same medication. ORDERS: X-ray not required at this time, no spinous process tenderness ED INTERVENTIONS: -IM Toradol 20mg. -Tramadol PO -Robaxin PO d/w pt. conservative treatment, and to follow up with a primary care provider. pt given a list of primary care clinics for follow up. d/w pt. to return to the ED with worsening or new symptoms. I discussed with this patient that I will also prescribe her some Lidoderm patches to try as an alternative to oral pain medication. DISCHARGE: At this time pt. is stable for d/c to home. Will provide printed patient care instructions, and any necessary prescriptions. Care plan and follow up instructions have been discussed with the patient prior to discharge. Last Vital Signs Date Time Temp Pulse Resp B/P (MAP) Pulse Ox O2 Delivery O2 Flow Rate FiO2 12/11/17 13:36 98.2 12/11/17 13:07 92 16 175/92 98 Room Air Disposition: HOME, SELF-CARE Condition: Stable Scripts Lidocaine (Lidoderm) 1 Each Adh..patch 1 PATCH TOPIC DAILY, #30 PATCH 0 Refills Patch(es) may remain in place for up to 12 hours in any 24-hour period. Prov: Reva Lassiter 12/11/17 Tramadol Hcl* (ULTRAM*) 50 Mg Tablet 50 MG ORAL Q6H PRN for For Pain, #20 TAB 0 Refills Prov: Reva Lassiter 12/11/17 Patient Instructions: Back Pain, Adult Additional Instructions: Take medications as directed. Follow up with a Primary Care Provider in 3-5 days, even if your symptoms have resolved. --Please review list of primary care clinics, if you do not already have a primary care provider Return sooner to ED if new symptoms occur, or current symptoms become worse. Do not drink alcohol, drive, or operate heavy machinery while taking Tramadol as this may cause drowsiness. - Please note that this Emergency Department Report was dictated using [employer] builder technology software, occasionally this can lead to erroneous entry secondary to interpretation by the dictation equipment. Reva Lassiter December 11, 2017 14:12
[2017-12-11] MEDS ORDERED: TRAMADOL HCL50 MG ORAL (14:22)
[2017-12-11] MEDS ORDERED: LIDODERM700 M1 TOPIC (14:32)
[2017-12-11 15:46] VITALS: BP 167/89
[2017-12-11 15:50] VITALS: BP 167/89
== END 2017-12-11 14:40 | disposition home or self-care (01) ==
LOC: EMR 13:21
DX: M54.5 Low back pain (principal); I10 Essential (primary) hypertension; E11.9 Type 2 diabetes mellitus without complications; Z86.718 Personal history of other venous thrombosis and embolism; Z88.0 Allergy status to penicillin; Z88.8 Allergy status to other drugs, medicaments and biological substances
CPT/HCPCS: 96372; 99284

== ENCOUNTER 2018-04-13 08:18 | Emergency (ER) | payer MEDICARE, OTHER ==
[~2018-04-13] VITALS: Ht 152.4 cm; Wt 65.8 kg
[~2018-04-13 08:18] MED LIST changes: +LIDODERM700 M1 TOPIC
[2018-04-13 08:36] VITALS: BP 141/90
--- NOTE | 2018-04-13 08:43 | Emergency Room Report ---
History of Present Illness General Chief Complaint: Lower Back Pain or Injury Source: Patient Present Illness HPI Patient presents with complaints of right lower back pain some radiation to the buttock area She reports that she had been doing fairly well however over the past 7 days she had increased discomfort Unable to see her primary physician Denies any fall or trauma denies any fevers or chills Denies any loss of control of bowel or urination Denies any saddle paresthesia patient reports that her discomfort is similar to her previous Denies any abdominal pain Allergies: Coded Allergies: ASHWIN INHIBITORS (Unverified Allergy, Unknown, 01/22/17) CALCIUM CHANNEL BLOCKING AGENTS-DIH (Verified Allergy, Unknown, 01/22/17) PENICILLINS (Verified Allergy, Unknown, 01/22/17) Uncoded Allergies: CALCIUM CHANNEL BLOCKERS (Allergy, Unknown, 03/14/16) DIHYDROPYRIDINES (Allergy, Unknown, 03/14/16) Patient History Past Medical History: see triage record Pertinent Family History: none Last Menstrual Period: na Reviewed Nursing Documentation: PMH: Agreed; PSxH: Agreed Nursing Documentation-PMH Past Medical History: No History, Except For Hx Cardiac Problems: Yes - DVT(Rt leg), IVC filter insertion in 11/2014 Hx Hypertension: Yes Hx Diabetes: Yes Hx Gastrointestinal Problems: No - Fibroid removal in 1979 Review of Systems All Other Systems: negative except mentioned in HPI Physical Exam Vital Signs Date Time Temp Pulse Resp B/P (MAP) Pulse Ox O2 Delivery O2 Flow Rate FiO2 04/13/18 08:27 97.7 65 18 141/90 98 Room Air 97.7 Sp02 EP Interpretation: reviewed, normal General Appearance: well appearing, no apparent distress Head: normocephalic, atraumatic Eyes: bilateral eye PERRL, bilateral eye EOMI ENT: hearing grossly normal, normal pharynx, TMs + canals normal, uvula midline Neck: full range of motion, supple, no meningismus, no bony tend Respiratory: lungs clear, normal breath sounds, no rhonchi, no respiratory distress, no retraction, no accessory muscle use Cardiovascular #1: normal peripheral pulses, regular rate, rhythm, no edema, no gallop, no JVD, no murmur Gastrointestinal: normal bowel sounds, non tender, soft, no mass, no organomegaly, non-distended, no guarding, no hernia, no pulsatile mass, no rebound Genitourinary: no CVA tenderness Musculoskeletal: other - Mild discomfort reproduce over the right posterior superior iliac crest, there is no sign of any weakness sensory is intact Neurologic: oriented x3, responsive, construction carpenter III-XII nml as tested, motor strength/ tone normal, sensory intact Psychiatric: mood/affect normal Skin: normal color, no rash, warm/dry, palpation normal Lymphatic: normal inspection, no adenopathy Medical Decision Making Diagnostic Impression: Primary Impression: Low back pain ER Course Patient has multiple differentials and consideration including vascular, neurologic, neurosurgical emergencies Her medical evaluation however is benign Patient's discomfort is also a similar location and similar to previous presentation Hemodynamically stable patient was provided with pain medication here and is stable for close follow-up Last Vital Signs Date Time Temp Pulse Resp B/P (MAP) Pulse Ox O2 Delivery O2 Flow Rate FiO2 04/13/18 08:36 97.7 80 18 141/90 98 Room Air 97.7 Status: improved Disposition: HOME, SELF-CARE Condition: Improved Additional Instructions: Patient is provided with the discharge instructions notified to follow up with primary doctor in the next 2-3 days otherwise return to the er with any worsening symptoms. Please note that this report is being documented using [employer] technology. This can lead to erroneous entry secondary to incorrect interpretation by the dictating instrument. Kevin Flores DO Apr 13, 2018 08:43
[2018-04-13] MEDS ORDERED: ROBAXIN-750750 MG PO (08:44)
[2018-04-13] MEDS ORDERED: PREDNISONE20 MG ORAL (08:44)
[2018-04-13] MEDS ORDERED: Morphine Sulfate 2mg/ml Inj IM ONE (08:45)
[2018-04-13 08:57] VITALS: BP 141/90
[2018-04-16] MEDS ORDERED: INDOCIN25 MG/5 ML PO (07:28)
== END 2018-04-13 08:59 | disposition home or self-care (01) ==
LOC: EMR 08:37
DX: M54.5 Low back pain (principal); E11.9 Type 2 diabetes mellitus without complications; I10 Essential (primary) hypertension; Z86.718 Personal history of other venous thrombosis and embolism
CPT/HCPCS: 96372; 99283; J2270

== ENCOUNTER 2018-05-14 22:38 | Emergency (ER) | payer MEDICARE, OTHER ==
[~2018-05-14] VITALS: Ht 152.4 cm; Wt 66.7 kg
[~2018-05-14 22:38] MED LIST changes: +INDOCIN25 MG/5 ML PO
[2018-05-14] MEDS ORDERED: Morphine Sulfate 2mg/ml Inj IM ONE (23:00)
[2018-05-14] MEDS ORDERED: HYDROCHLOROTHIA25 MG ORAL (23:02)
--- NOTE | 2018-05-14 23:04 | Emergency Room Report ---
History of Present Illness General Chief Complaint: Back Pain-No Injury Source: Patient Present Illness HPI This is a 73-year-old female with a history of high blood pressure in chronic neck and back pain. She presents with chief complaint of neck and back pain. Onset for last couple days. Worse with movement. No trauma. No fever chills. Similar symptoms in the past. She's been here several times for this already. She also been to [facility] for the same thing. No focal deficit. No other neurological deficit. Pain is 9 out of 10. No relief with over-the- counter medication. Allergies: Coded Allergies: ASHWIN INHIBITORS (Unverified Allergy, Unknown, 04/16/18) CALCIUM CHANNEL BLOCKING AGENTS-DIH (Verified Allergy, Unknown, 04/16/18) PENICILLINS (Verified Allergy, Unknown, 04/16/18) Uncoded Allergies: CALCIUM CHANNEL BLOCKERS (Allergy, Unknown, 03/14/16) DIHYDROPYRIDINES (Allergy, Unknown, 03/14/16) Patient History Past Medical History: see triage record, old chart reviewed Past Surgical History: other Pertinent Family History: none Social History: Denies: smoking Last Menstrual Period: 1984 Now: No : 3 Para: 2 Immunizations: other Reviewed Nursing Documentation: PMH: Agreed; PSxH: Agreed Nursing Documentation-PMH Past Medical History: No History, Except For Hx Cardiac Problems: Yes - DVT(Rt leg), IVC filter insertion in 11/2014 Hx Hypertension: Yes Hx Diabetes: Yes Hx Gastrointestinal Problems: No - Fibroid removal in 1979 Review of Systems Eye: Denies: eye pain, blurred vision ENT: Denies: ear pain, nose congestion, throat swelling Respiratory: Denies: cough, shortness of breath Cardiovascular: Denies: chest pain, palpitations Gastrointestinal: Denies: abdominal pain, diarrhea, nausea, vomiting Musculoskeletal: Reports: back pain; Denies: joint pain Skin: Denies: rash Neurological: Denies: headache, numbness Endocrine: Denies: increased thirst, increased urine Hematologic/Lymphatic: Denies: easy bruising All Other Systems: negative except mentioned in HPI Physical Exam Vital Signs Date Time Temp Pulse Resp B/P (MAP) Pulse Ox O2 Delivery O2 Flow Rate FiO2 05/14/18 22:43 98.2 81 16 184/101 95 Room Air 98.2 vitals with high blood pressure Sp02 EP Interpretation: reviewed, normal General Appearance: well appearing, no apparent distress, alert Head: normocephalic, atraumatic Eyes: bilateral eye PERRL, bilateral eye EOMI ENT: hearing grossly normal, normal pharynx Neck: full range of motion, supple, no meningismus, tender - mild, diffuse. No step-off. Respiratory: chest non-tender, lungs clear, normal breath sounds Cardiovascular #1: regular rate, rhythm, no murmur Gastrointestinal: normal bowel sounds, non tender, no mass, no organomegaly, no bruit, non-distended Musculoskeletal: back normal - lower lumbar tenderness., gait/station normal, normal range of motion Psychiatric: mood/affect normal Skin: warm/dry Medical Decision Making Diagnostic Impression: Primary Impression: Back pain Qualified Codes: M54.5 - Low back pain ER Course Patient with lower back pain. No evidence of cauda equina syndrome, spinal epidural abscess or neoplastic process. We'll discharge home. Last Vital Signs Date Time Temp Pulse Resp B/P (MAP) Pulse Ox O2 Delivery O2 Flow Rate FiO2 05/14/18 22:43 98.2 81 16 184/101 95 Room Air 98.2 Status: improved Disposition: HOME, SELF-CARE Condition: Stable Scripts Hydrochlorothiazide* (HYDROCHLOROTHIAZIDE*) 25 Mg Tablet 25 MG ORAL DAILY, #20 TAB Prov: Jeff Courtney MD 05/14/18 Patient Instructions: Back Pain, Adult Additional Instructions: Follow-up with your doctor in 7 days. Return if worse. Jeff Courtney MD May 14, 2018 23:04
[2018-05-14] MEDS ORDERED: NORCO 5-325 TA1 EACH ORAL (23:07)
[2018-05-14 23:24] VITALS: BP 150/80
== END 2018-05-14 23:08 | disposition home or self-care (01) ==
LOC: EMR 22:50
DX: M54.5 Low back pain (principal); M54.2 Cervicalgia; G89.29 Other chronic pain; I10 Essential (primary) hypertension; E11.9 Type 2 diabetes mellitus without complications; Z86.718 Personal history of other venous thrombosis and embolism; Z88.0 Allergy status to penicillin; Z88.8 Allergy status to other drugs, medicaments and biological substances
CPT/HCPCS: 96372; 99283; J2270

== ENCOUNTER 2018-07-31 07:28 | Emergency (ER) | payer MEDICARE, OTHER ==
[~2018-07-31] VITALS: Ht 152.4 cm; Wt 66.7 kg
[~2018-07-31 07:28] MED LIST changes: +HYDROCHLOROTHIA25 MG ORAL; +NORCO 5-325 TA1 EACH ORAL
[2018-07-31] MEDS ORDERED: OMEPRAZOLE20 M2 ORAL (07:41)
[2018-07-31] MEDS ORDERED: SPIRONOLACTONE100 MG ORAL (07:41)
[2018-07-31 07:56] VITALS: BP 139/75
[2018-07-31] MEDS ORDERED: Cyclobenzaprine 10mg Tab ORAL ONE (08:15)
[2018-07-31 08:29] LABS: APPEARANCE,URINE CLEAR; BILIRUBIN, URINE NEGATIVE (NEGATIVE); COLOR,URINE PALE YELLOW; GLUCOSE, URINE (UA) NEGATIVE (NEGATIVE); KETONES,URINE NEGATIVE (NEGATIVE); LEUKOCYTE ESTERASE ,URINE NEGATIVE (NEGATIVE); NITRITE,URINE NEGATIVE (NEGATIVE); PH,URINE 5 (4.5-8.0); PROTEIN,URINE NEGATIVE (NEGATIVE); UROBILINOGEN,URINE NORMAL MG/DL (0.0-1.0)
--- NOTE | 2018-07-31 08:29 | Emergency Room Report ---
History of Present Illness General Chief Complaint: Back Pain-No Injury Source: Patient, Medical Record Present Illness HPI 73yo F w/ h/o htn, dm, PVD s/p fem art stent p/w L flank pain x 3 days, no meds tried, reports worse with movement; had similar pain a few weeks ago, seen at [facility], had a normal workup, now pain returns, but patient denies f/c, cough, leg pain/swelling, recent travel, hemoptysis, chest pain, n/v, diarrhea, hematuria, dysuria, skin rash. Allergies: Coded Allergies: ASHWIN INHIBITORS (Unverified Allergy, Unknown, 07/31/18) CALCIUM CHANNEL BLOCKING AGENTS-DIH (Verified Allergy, Unknown, 07/31/18) PENICILLINS (Verified Allergy, Unknown, 07/31/18) Uncoded Allergies: CALCIUM CHANNEL BLOCKERS (Allergy, Unknown, 03/14/16) DIHYDROPYRIDINES (Allergy, Unknown, 03/14/16) Patient History Past Medical History: see triage record Reviewed Nursing Documentation: PMH: Agreed; PSxH: Agreed Nursing Documentation-PMH Past Medical History: No History, Except For Hx Cardiac Problems: Yes - DVT(Rt leg), IVC filter insertion in 11/2014 Hx Hypertension: Yes Hx Diabetes: Yes - DM2 Hx Gastrointestinal Problems: No - Fibroid removal in 1979 Review of Systems All Other Systems: negative except mentioned in HPI Physical Exam Vital Signs Date Time Temp Pulse Resp B/P (MAP) Pulse Ox O2 Delivery O2 Flow Rate FiO2 07/31/18 07:33 97.9 76 16 140/75 97 Room Air Sp02 EP Interpretation: reviewed, normal General Appearance: no apparent distress, alert, non-toxic Head: normocephalic Eyes: bilateral eye normal inspection, bilateral eye PERRL, bilateral eye EOMI ENT: normal ENT inspection, hearing grossly normal, normal pharynx, no angioedema, normal voice, moist mucus membranes Neck: normal inspection, full range of motion, supple, supple/symm/no masses Respiratory: chest non-tender, lungs clear, normal breath sounds, chest symmetrical, palpation of chest normal Cardiovascular #1: normal peripheral pulses, regular rate, rhythm Cardiovascular #2: 2+ radial (R), 2+ radial (L) Gastrointestinal: normal inspection, non tender, soft, no mass, no guarding, no rebound Rectal: deferred Genitourinary: normal inspection, no CVA tenderness Musculoskeletal: back normal, gait/station normal, normal range of motion, non- tender, no calf tenderness, Dalton's Sign negative Neurologic: alert, responsive, national sales III-XII nml as tested, motor strength/tone normal, sensory intact, speech normal Psychiatric: judgement/insight normal, memory normal, mood/affect normal, no suicidal/homicidal ideation Skin: normal color, no rash, warm/dry, normal turgor Lymphatic: no adenopathy Medical Decision Making Diagnostic Impression: Primary Impression: Back pain ER Course Patient with normal basic labs, urinalysis, CT abdomen and pelvis, will discharge with muscle relaxants, ibuprofen, follow-up with PMD. I suspect muscular skeletal back pain. Last Vital Signs Date Time Temp Pulse Resp B/P (MAP) Pulse Ox O2 Delivery O2 Flow Rate FiO2 07/31/18 07:56 97.9 75 16 139/75 97 Room Air Status: improved Disposition: HOME, SELF-CARE Condition: Stable Referrals: NON PHYSICIAN (PCP) KIANNA COOK M.D Jul 31, 2018 08:29
[2018-07-31 08:40] LABS: BASOPHILS % (AUTO) 0.7 % (0.0-2.0); EOSINOPHILS % (AUTO) 1.8 % (0.0-3.0); HEMATOCRIT 37.9 % (37.0-47.0); HEMOGLOBIN 12.9 G/DL (12.0-16.0); LYMPHOCYTES % (AUTO) 45.7 % (20.0-45.0); MEAN CORPUSCULAR VOLUME 81 FL (80-99); MONOCYTES % (AUTO) 7.6 % (1.0-10.0); NEUTROPHILS % (AUTO) 44.2 % (45.0-75.0); PLATELET COUNT 152 K/UL (150-450); RED BLOOD COUNT 4.69 M/UL (4.20-5.40); RED CELL DISTRIBUTION WIDTH 12.3 % (11.6-14.8); WHITE BLOOD COUNT 4.8 K/UL (4.8-10.8)
--- NOTE | 2018-07-31 08:49 | Diagnostic Imaging Report ---
Indication: Abdominal pain, left flank pain Technique: Spiral acquisitions obtained through the abdomen and pelvis. No oral contrast utilized, per emergency room physician request No IV contrast utilized, per referring physician request.. Multiplanar reconstructions were generated. Total dose length product 658.23 mGycm. CTDIvol(s) 14.56 mGy. Dose reduction achieved using automated exposure control Comparison: Pelvic CT dated 08/21/2016. No comparison abdomen CT Findings: There is a calcification in the right kidney. This is likely parenchymal, associated with a scar. No calyceal calculi demonstrated on either side. No ureteral calculi, hydronephrosis or hydroureter demonstrated. Lack of IV contrast limits assessment of the renal parenchyma. No gross renal parenchymal mass or cyst is demonstrated. Lack of IV contrast limits assessment of the other solid organs. The liver is grossly unremarkable. The gallbladder is nondistended, contains multiple gallstones. The bile ducts, pancreas, spleen, adrenals are unremarkable. No pelvic mass or adenopathy. Uterus is atrophic. No retroperitoneal or mesenteric mass or adenopathy. Lack of enteric contrast limits assessment of the GI tract. There is colonic diverticulosis. No evidence of diverticulitis. The appendix is normal. No small bowel distention. No free or loculated intraperitoneal gas or fluid is evident. The distal esophagus, stomach, duodenum are unremarkable. The included lung bases demonstrate dependent atelectatic changes. The bones are unremarkable for age. Pelvic findings are unchanged since prior study Impression: Scarring and probable parenchymal calcification in the right kidney. No evidence of urinary stone disease or obstructive uropathy Limited assessment of the GI tract, due to lack of enteric contrast administration, and limited assessment of solid organs due to lack of IV contrast No gross acute abnormality Cholelithiasis Diverticulosis Incidental finding of basilar pulmonary parenchymal atelectatic changes The CT scanner at [facility] is accredited by the [employer] and the scans are performed using protocols designed to limit radiation exposure to as low as reasonably achievable to attain images of sufficient resolution adequate for diagnostic evaluation.
[2018-07-31 09:01] LABS: ANION GAP 11 mmol/L (5-15); BLOOD UREA NITROGEN 23 mg/dL (7-18); CALCIUM 8.5 MG/DL (8.5-10.1); CARBON DIOXIDE 25 MMOL/L (21-32); CHLORIDE 102 MMOL/L (98-107); CREATININE 1.4 MG/DL (0.55-1.30); POTASSIUM 3.7 MMOL/L (3.5-5.1); SODIUM 138 MMOL/L (136-145)
[2018-07-31 09:05] LABS: ALANINE AMINOTRANSFERASE 19 U/L (12-78); ALBUMIN 3.2 G/DL (3.4-5.0); ALBUMIN/GLOBULIN RATIO 0.8 (1.0-2.7); ALKALINE PHOSPHATASE 148 U/L (46-116); ASPARTATE AMINO TRANSFERASE 17 U/L (15-37); BILIRUBIN,TOTAL 0.3 MG/DL (0.2-1.0)
[2018-07-31] MEDS ORDERED: CYCLOBENZAPRINE10 MG ORAL (09:26)
[2018-07-31] MEDS ORDERED: MEDROL DOSEPAK4 MG ORAL (09:26)
[2018-07-31 09:36] VITALS: BP 139/75
== END 2018-07-31 09:38 | disposition home or self-care (01) ==
LOC: EMR 08:08
DX: M54.9 Dorsalgia, unspecified (principal); E11.9 Type 2 diabetes mellitus without complications; I10 Essential (primary) hypertension; K80.20 Calculus of gallbladder without cholecystitis without obstruction; Z88.0 Allergy status to penicillin; Z88.8 Allergy status to other drugs, medicaments and biological substances; Z86.718 Personal history of other venous thrombosis and embolism; K57.30 Diverticulosis of large intestine without perforation or abscess without bleeding
CPT/HCPCS: 36415; 74176; 80053; 81003; 83690; 85025; 99284

== ENCOUNTER 2018-09-09 19:00 | Emergency (ER) | payer MEDICARE, OTHER ==
[~2018-09-09] VITALS: Ht 152.4 cm; Wt 66.7 kg
[~2018-09-09 19:00] MED LIST changes: +OMEPRAZOLE20 M2 ORAL; +SPIRONOLACTONE100 MG ORAL
[2018-09-09 19:23] VITALS: BP 154/94
--- NOTE | 2018-09-09 19:23 | NUR ---
ED Nurse Note: Pt c/o L arm pain for 4 days, pain level 10/10. Pt states she has no chest pain. Pt states last year her L arm has the same syndrome. pt seen by uche williamson. application technical designer on bedside. will continue to monitor.
--- NOTE | 2018-09-09 19:49 | Emergency Room Report ---
History of Present Illness General Chief Complaint: Pain Source: Patient Present Illness HPI 73-year-old female patient presents the ER complaining of left elbow pain for the past 4 days. Reports pain with movement. Reports swelling and redness at left elbow. Denies history of gout. Denies taking blood thinner medications. Denies acute injury or trauma. Reports pain worse with movement. States has not taken any ibuprofen or Tylenol because "it does not work". Reports history of diabetes, states well controlled with oral medication, states does not take insulin. Denies fever, chest pain, shortness of breath. Denies other aggravating or relieving factors. History of similar symptoms in the past, states was previously given IV morphine to help treat the pain symptoms. Denies history of gout. Reports hx of similar symptoms in the past. Reports has been applying "warm bottles" to her elbow. Allergies: Coded Allergies: ASHWIN INHIBITORS (Unverified Allergy, Unknown, 07/31/18) CALCIUM CHANNEL BLOCKING AGENTS-DIH (Verified Allergy, Unknown, 07/31/18) PENICILLINS (Verified Allergy, Unknown, 07/31/18) Uncoded Allergies: CALCIUM CHANNEL BLOCKERS (Allergy, Unknown, 03/14/16) DIHYDROPYRIDINES (Allergy, Unknown, 03/14/16) Patient History Past Medical History: see triage record Now: No Reviewed Nursing Documentation: PMH: Agreed; PSxH: Agreed Nursing Documentation-PMH Hx Cardiac Problems: Yes - DVT(Rt leg), IVC filter insertion in 11/2014 Hx Hypertension: Yes Hx Diabetes: Yes - DM2 Hx Gastrointestinal Problems: No - Fibroid removal in 1979 Review of Systems All Other Systems: negative except mentioned in HPI Physical Exam Vital Signs Date Time Temp Pulse Resp B/P (MAP) Pulse Ox O2 Delivery O2 Flow Rate FiO2 09/09/18 19:08 98.1 88 18 154/94 98 Room Air Sp02 EP Interpretation: reviewed, normal General Appearance: well appearing, no apparent distress, alert, GCS 15, non- toxic Head: normocephalic, atraumatic Eyes: bilateral eye normal inspection, bilateral eye PERRL ENT: hearing grossly normal, normal pharynx, no angioedema, normal voice, uvula midline, moist mucus membranes Neck: full range of motion, no bony tend Respiratory: lungs clear, normal breath sounds, no rhonchi, no respiratory distress, no accessory muscle use, no wheezing, speaking full sentences Cardiovascular #1: regular rate, rhythm, no edema Cardiovascular #2: 2+ radial (R), 2+ radial (L) Musculoskeletal: back normal, digits/nails normal, gait/station normal, decreased range of motion - secondary to pain, swelling - mild, other - no erythema, no gouty tophi, NVI, cap refill <2 seconds, tender Neurologic: alert, oriented x3, responsive, motor strength/tone normal, sensory intact Psychiatric: mood/affect normal Medical Decision Making PA Attestation Dr. Yepez is my supervising Physician whom patient management has been discussed with. Diagnostic Impression: Primary Impression: Bursitis of elbow ER Course Pt. presents to the ED c/o left elbow pain. Ddx considered but are not limited to fracture, sprain, strain, contusion, dislocation, bursitis, septic joint. No erythema, no fever, nontoxic appearing, low suspicion for septic joint. Soft compartments, no pulselessness, no pallor, no paresthesias, low suspicion for compartment syndrome at this time. Vital signs: are WNL, pt. is afebrile Ordered X-ray and pain medication. ER COURSE Provided with pain medication. Decreased ROM noted secondary to pain. An X-ray of the elbow shows no acute disease, degenerative changes noted per the preliminary reading. Provide patient with dose of prednisone, IM morphine, topical lidocaine and arm sling while in the ER. Low dose of prednisone provided due pain and swelling symptoms and due to patient hx of diabetes. Patient states she has taken prednisone previously for similar symptoms in the past. Following treatment, ROM increased. Sling will be applied to the left arm was checked afterwards by me showing good alignment and support with distal neurovascular functioning intact. Patient instructed on RICE method: rest, ice, compression, elevation. Patient instructed on rest, ice and heat. Patient instructed to be WBAT Follow-up with primary care provider discussed referral to pain management. Contact information for orthopedic urgent care provided, follow-up with urgent care if unable to followup with primary care provider and get referral to service center specialist. Followup with primary care provider. Discuss referral to ortho/pain management/ PT as needed. Discuss further imaging with MRI/CT as needed. Patient seen and evaluated by Dr. Yepez, agrees with assessment and treatment plan. Reports pain symptoms improved. ER precautions given. DISCHARGE: -Rx provided for prednisone for swelling symptoms. Rx provided for ibuprofen At this time pt. is stable for d/c to home. Patient is resting comfortably, in no acute distress, nontoxic appearing, talking without difficulty. Will provide printed patient care instructions, and any necessary prescriptions. Patient instructed to follow with primary care provider in 3 - 5 days and to request further follow-up as needed. Care plan and follow up instructions have been discussed with the patient prior to discharge. Take medications as directed. Patient questions asked and answered. Patient reports understanding and agreement to treatment plan. ER precautions given, patient instructed to return to ER immediately for any new or worsening of symptoms. - Please note that this Emergency Department Report was dictated using [employer] drug safety technology software, occasionally this can lead to erroneous entry secondary to interpretation by the dictation equipment. Other X-Ray Diagnostic Results Other X-Ray Diagnostic Results : X-Ray ordered: left elbow # of Views/Limited Vs Complete: 3 View Indication: Pain EP Interpretation: Yes PA Xray: Interpretation reviewed, by supervising MD, and agrees with findings. Interpretation: no dislocation, no soft tissue swelling, no fractures, other - Degenerative changes noted Impression: No acute disease PA Scribe Text Gal Carvalho PA-C Last Vital Signs Date Time Temp Pulse Resp B/P (MAP) Pulse Ox O2 Delivery O2 Flow Rate FiO2 09/09/18 19:08 98.1 88 18 154/94 98 Room Air Status: improved Disposition: HOME, SELF-CARE Condition: Stable Scripts Ibuprofen* (MOTRIN*) 600 Mg Tablet 600 MG ORAL Q8H PRN for For Pain, #30 TAB 0 Refills Prov: Emigdio Carvalho P.A. 09/09/18 Prednisone* (PREDNISONE*) 20 Mg Tablet 20 MG ORAL DAILY for 4 Days, #4 TAB 0 Refills Prov: Emigdio Carvalho P.A. 09/09/18 Referrals: NON PHYSICIAN (PCP) Patient Instructions: Bursitis, [id number] Additional Instructions: Patient instructed to follow up with primary care provider and discuss further referral to orthopedics/physical therapy/pain management as needed. If unable to followup with PCP, followup with orthopedic urgent care in 5-7 days , call to schedule appointment. Patient instructed on RICE method: rest, ice, compression, elevation. Patient instructed to WBAT. Take medications as directed. Patient questions asked and answered. ER precautions given, patient instructed to return to ER immediately for any new or worsening of symptoms. [facility] [address] [facility], [id number] [email or web address] Emigdio Carvalho Sep 09, 2018 19:49
[2018-09-09] MEDS ORDERED: Morphine Sulfate 4mg/ml Inj (IV/IM USE ONLY) IM ONE (20:00)
[2018-09-09] MEDS ORDERED: IBUPROFEN600 MG ORAL (20:02)
[2018-09-09] MEDS ORDERED: PREDNISONE20 MG ORAL (20:02)
[2018-09-09 20:19] VITALS: BP 144/88
--- NOTE | 2018-09-09 20:19 | NUR ---
ED Nurse Note: Patient is being discharged cleared by ER PA. discharge paper/instruction given to the patient, patient verbalized understanding. patient a/o x4, ambulated out of Ed with steady gait, with all belongings. ID band removed.
--- NOTE | 2018-09-10 09:55 | Diagnostic Imaging Report ---
Indications:Left elbow pain Technique: Three or 4 views of the left elbow Comparison: None Findings: There is a large joint effusion. Multiple ossific densities are seen projecting around the joint, could indicate synovial osteochondromata. No definite acute fractures. There is degenerative narrowing of the joint space between the humerus and the ulna. The radial side joint space is preserved. Impression:No acute bony trauma.. ER physician report, no history of injury Large joint effusion. This could indicate infection, noninfectious inflammation, soft tissue injury or occult bony trauma. Multiple ossific densities projecting around the elbow joint, could represent synovial osteochondromata or large intra-articular loose bodies. Consider MRI for better characterization if clinically indicated Degenerative changes, as described Findings represent a partial discrepancy from the findings reported by the ER physician electronic medical record. Discrepant findings phoned to Dr. Mills in the emergency room at the time of interpretation
== END 2018-09-09 20:19 | disposition home or self-care (01) ==
LOC: EMR 19:38
DX: M70.32 Other bursitis of elbow, left elbow (principal); I10 Essential (primary) hypertension; E11.9 Type 2 diabetes mellitus without complications; Z86.718 Personal history of other venous thrombosis and embolism; Z88.8 Allergy status to other drugs, medicaments and biological substances
CPT/HCPCS: 73080; 99283; J2270; J7512

== ENCOUNTER 2019-01-22 08:34 | Emergency (ER) | payer MEDICARE, OTHER ==
[~2019-01-22] VITALS: Ht 152.4 cm; Wt 66.2 kg
[2019-01-22] MEDS ORDERED: HYDROCHLOROTHIA25 MG ORAL (08:46)
[2019-01-22 08:54] VITALS: BP 133/88
--- NOTE | 2019-01-22 08:59 | NUR ---
ED Nurse Note: pt denies any injury states she woke up with rt arm pain . Awaiting ermd eval.
--- NOTE | 2019-01-22 09:27 | NUR ---
ED Nurse Note: no nsg orders will monitor awaiting ermd eval.
[2019-01-22] MEDS ORDERED: Ketorolac 30mg Inj IV ONE (10:00)
--- NOTE | 2019-01-22 10:44 | NUR ---
ED Nurse Note: kelsi jones done blood sent to lab [facility] established pt medicated x-ray done and US at bedside now.
--- NOTE | 2019-01-22 10:47 | Diagnostic Imaging Report ---
Indications:Elbow pain Technique: Three or 4 views of the right elbow Comparison: None Findings: There is suggestion of a joint effusion, manifested by elevation of the posterior fat pad. No definite acute fracture. No dislocations. There are some degenerative irregularities of the coronoid process. Corticated ossific densities project adjacent to the lateral condyle, presumably dystrophic in nature. Impression: Positive for joint effusion, no fracture. Per discussion with the ER physician, no history of trauma, just elbow pain and swelling.
[2019-01-22 10:49] LABS: BASOPHILS % (AUTO) 2.2 % (0.0-2.0); EOSINOPHILS % (AUTO) 0.9 % (0.0-3.0); HEMATOCRIT 32.2 % (37.0-47.0); HEMOGLOBIN 11.8 G/DL (12.0-16.0); LYMPHOCYTES % (AUTO) 35.7 % (20.0-45.0); MEAN CORPUSCULAR VOLUME 78 FL (80-99); MONOCYTES % (AUTO) 10.6 % (1.0-10.0); NEUTROPHILS % (AUTO) 50.5 % (45.0-75.0); PLATELET COUNT 144 K/UL (150-450); RED BLOOD COUNT 4.12 M/UL (4.20-5.40); RED CELL DISTRIBUTION WIDTH 11.7 % (11.6-14.8); WHITE BLOOD COUNT 4.7 K/UL (4.8-10.8)
[2019-01-22 10:58] LABS: ANION GAP 12 mmol/L (5-15); BLOOD UREA NITROGEN 21 mg/dL (7-18); CALCIUM 8.8 MG/DL (8.5-10.1); CARBON DIOXIDE 23 MMOL/L (21-32); CHLORIDE 103 MMOL/L (98-107); CREATININE 1.3 MG/DL (0.55-1.30); POTASSIUM 3.8 MMOL/L (3.5-5.1); SODIUM 137 MMOL/L (136-145)
[2019-01-22 11:03] LABS: ALANINE AMINOTRANSFERASE 10 U/L (12-78); ALBUMIN 3.4 G/DL (3.4-5.0); ALBUMIN/GLOBULIN RATIO 0.9 (1.0-2.7); ALKALINE PHOSPHATASE 103 U/L (46-116); ASPARTATE AMINO TRANSFERASE 26 U/L (15-37); BILIRUBIN,TOTAL 0.6 MG/DL (0.2-1.0); CREATINE KINASE 86 U/L (26-308)
--- NOTE | 2019-01-22 11:19 | NUR ---
ED Nurse Note: US complete pt sttes she is currently pain free will monitor
--- NOTE | 2019-01-22 11:41 | Diagnostic Imaging Report ---
Indication: Right upper extremity pain Technique: Grayscale and duplex images of the right upper extremity veins Comparison: none Findings: On the right, grayscale duplex images demonstrate no evidence of intraluminal thrombus. Normal compressibility. Normal phasic Doppler waveforms Impression: Negative for evidence of right upper extremity venous thrombosis
--- NOTE | 2019-01-22 12:26 | NUR ---
ED Nurse Note: camden wrap applied to pt's rt elbow yoan well.
[2019-01-22] MEDS ORDERED: ACETAMINOPHEN-1 EAC1 ORAL (12:42)
[2019-01-22] MEDS ORDERED: IBUPROFEN600 MG ORAL (12:42)
--- NOTE | 2019-01-22 12:42 | Emergency Room Report ---
History of Present Illness General Chief Complaint: Upper Extremity Injury Source: Patient, Medical Record Present Illness HPI This patient states that for the past 2 weeks she has had right elbow pain. She states the pain is much worse with movement. She also notes that she has had intermittent pain in her hand and fingers. She states that at this time it primarily in the right elbow. She denies fever or chills. She denies trauma. She states that the symptoms have not improved over time. She has no other joint pain at this time. However, she states in the past she has had joint pain in her knee and has had to get injections in her wrist in the past. She denies history of gout. She has no other complaints. Allergies: Coded Allergies: ASHWIN INHIBITORS (Unverified Allergy, Unknown, 07/31/18) CALCIUM CHANNEL BLOCKING AGENTS-DIH (Verified Allergy, Unknown, 07/31/18) PENICILLINS (Verified Allergy, Unknown, 07/31/18) Uncoded Allergies: CALCIUM CHANNEL BLOCKERS (Allergy, Unknown, 03/14/16) DIHYDROPYRIDINES (Allergy, Unknown, 03/14/16) Patient History Past Medical History: see triage record, DM, HTN, other - DVT Social History: Denies: smoking, alcohol use, drug use Reviewed Nursing Documentation: PMH: Agreed; PSxH: Agreed Nursing Documentation-PMH Past Medical History: No History, Except For Hx Cardiac Problems: Yes - DVT(Rt leg), IVC filter insertion in 11/2014 Hx Hypertension: Yes Hx Diabetes: Yes - DM2 Hx Gastrointestinal Problems: No - Fibroid removal in 1979 Review of Systems All Other Systems: negative except mentioned in HPI Physical Exam Vital Signs Date Time Temp Pulse Resp B/P (MAP) Pulse Ox O2 Delivery O2 Flow Rate FiO2 01/22/19 08:42 98.2 88 16 133/88 (103) 96 Room Air Sp02 EP Interpretation: reviewed, normal General Appearance: no apparent distress, alert, GCS 15, non-toxic Head: normocephalic, atraumatic Eyes: bilateral eye normal inspection, bilateral eye PERRL ENT: hearing grossly normal, normal pharynx, no angioedema, normal voice Neck: full range of motion, supple/symm/no masses Respiratory: chest non-tender, lungs clear, normal breath sounds, no respiratory distress, no retraction, no accessory muscle use, speaking full sentences Cardiovascular #1: regular rate, rhythm, no edema Rectal: deferred Musculoskeletal: back normal, gait/station normal, decreased range of motion - R. elbow swollen. No erythema or warmth. +pain w/ ROM. Neurologic: alert, oriented x3, responsive, motor strength/tone normal, sensory intact, speech normal Psychiatric: judgement/insight normal, memory normal, mood/affect normal, no suicidal/homicidal ideation Skin: normal color, no rash, warm/dry, well hydrated Medical Decision Making Diagnostic Impression: Primary Impression: Elbow joint effusion Additional Impression: Reactive arthritis ER Course This patient has an elbow joint effusion. I suspect this is a reactive arthritis of uncertain etiology. Possibly rheumatoid, possibly gouty, possibly viral. Regardless, I do not suspect septic arthritis given the length of time of 2 weeks of symptoms. There is no erythema, warmth or systemic symptoms. There is some slight erythema along the right lower forearm. This could be a mild thrombophlebitis. However, as a precaution, I will put this patient on a course of antibiotics. The patient was educated to follow-up closely with her primary care physician. She did have an elevation in her ESR and CRP which makes me think there may be a reactive etiology. At this time, there is no emergency medical condition. The patient is given close return precautions and follow-up instructions. Laboratory Tests Test 01/22/19 10:17 01/22/19 10:43 White Blood Count 4.7 K/UL (4.8-10.8) L Red Blood Count 4.12 M/UL (4.20-5.40) L Hemoglobin 11.8 G/DL (12.0-16.0) L Hematocrit 32.2 % (37.0-47.0) L Mean Corpuscular Volume 78 FL (80-99) L Mean Corpuscular Hemoglobin 28.5 PG (27.0-31.0) Mean Corpuscular Hemoglobin Concent 36.5 G/DL (32.0-36.0) H Red Cell Distribution Width 11.7 % (11.6-14.8) Platelet Count 144 K/UL (150-450) L Mean Platelet Volume 6.8 FL (6.5-10.1) Neutrophils (%) (Auto) 50.5 % (45.0-75.0) Lymphocytes (%) (Auto) 35.7 % (20.0-45.0) Monocytes (%) (Auto) 10.6 % (1.0-10.0) H Eosinophils (%) (Auto) 0.9 % (0.0-3.0) Basophils (%) (Auto) 2.2 % (0.0-2.0) H Sodium Level 137 MMOL/L (136-145) Potassium Level 3.8 MMOL/L (3.5-5.1) Chloride Level 103 MMOL/L (98-107) Carbon Dioxide Level 23 MMOL/L (21-32) Anion Gap 12 mmol/L (5-15) Blood Urea Nitrogen 21 mg/dL (7-18) H Creatinine 1.3 MG/DL (0.55-1.30) Estimate Glomerular Filtration Rate mL/min (>60) Glucose Level 127 MG/DL (74-106) H Calcium Level 8.8 MG/DL (8.5-10.1) Total Bilirubin 0.6 MG/DL (0.2-1.0) Aspartate Amino Transferase (AST) 26 U/L (15-37) Alanine Aminotransferase (ALT) 10 U/L (12-78) L Alkaline Phosphatase 103 U/L (46-116) Total Creatine Kinase 86 U/L (26-308) C-Reactive Protein, Quantitative 7.4 mg/dL (0.00-0.90) H Total Protein 7.2 G/DL (6.4-8.2) Albumin 3.4 G/DL (3.4-5.0) Globulin 3.8 g/dL Albumin/Globulin Ratio 0.9 (1.0-2.7) L Erythrocyte Sedimentation Rate 51 MM/HR (0-30) H Other X-Ray Diagnostic Results Other X-Ray Diagnostic Results : X-Ray ordered: R. elbow xray # of Views/Limited Vs Complete: Complete Indication: Pain EP Interpretation: Yes Interpretation: no fractures, other - +joint effusion. No fracture. Impression: Other - See above Electronically Signed by: Cailin Lindsey DO CT/MRI/US Diagnostic Results CT/MRI/US Diagnostic Results : Imaging Test Ordered: US RUE Impression No DVT. See official report in electronic medical record. Last Vital Signs Date Time Temp Pulse Resp B/P (MAP) Pulse Ox O2 Delivery O2 Flow Rate FiO2 01/22/19 11:04 98.2 01/22/19 08:54 16 133/88 96 Room Air 01/22/19 08:42 88 Status: improved Disposition: HOME, SELF-CARE Condition: Improved Referrals: NON PHYSICIAN (PCP) Cailin Lindsey DO Jan 22, 2019 12:42
[2019-01-22 12:57] VITALS: BP 127/71
--- NOTE | 2019-01-22 12:59 | NUR ---
ER DISCHARGE NOTE: Patient is cleared to be discharged per ERMD with family member, pt is aox4, on room air, with stable vital signs. pt was given dc and prescription instructions, pt was able to verbalize understanding, pt id band and iv site removed without complications. pt is able to ambulate with steady gait. pt took all belongings.
== END 2019-01-22 12:59 | disposition home or self-care (01) ==
LOC: EMR 09:37
DX: M25.421 Effusion, right elbow (principal); M19.90 Unspecified osteoarthritis, unspecified site; Z88.0 Allergy status to penicillin; Z88.8 Allergy status to other drugs, medicaments and biological substances; E11.9 Type 2 diabetes mellitus without complications; Z86.718 Personal history of other venous thrombosis and embolism; I10 Essential (primary) hypertension
CPT/HCPCS: 36415; 73080; 80053; 82550; 85025; 85651; 86140; 93971; 96374; 99284; J1885

== ENCOUNTER 2019-03-14 07:15 | Emergency (ER) | payer MEDICARE, OTHER ==
[~2019-03-14] VITALS: Ht 172.7 cm; Wt 62.6 kg
[2019-03-14 07:33] VITALS: BP 149/86
--- NOTE | 2019-03-14 07:34 | NUR ---
ED Nurse Note: Patient ambulated in to ER due to low back pain 9/ for last 3 days without injury. Patient is alert and oriented x4 and ambulatory. Skin clean and intact. Calm and cooperative.
[2019-03-14] MEDS ORDERED: Ketorolac 60mg Inj IM ONE (07:45)
[2019-03-14] MEDS ORDERED: Dexamethasone 4mg/ml vial ORAL ONE (07:45)
[2019-03-14] MEDS ORDERED: NAPROXEN250 MG ORAL (07:54)
[2019-03-14] MEDS ORDERED: ROBAXIN-750750 MG PO (07:54)
--- NOTE | 2019-03-14 07:54 | Emergency Room Report ---
History of Present Illness General Chief Complaint: Back Pain-No Injury Present Illness HPI 73-year-old female presents with left lower back pain after cleaning her house, she states she was bending over a lot, she states the pain is aching in nature, moderate severity, aggravated with movement alleviated with rest, not sudden in onset, gradual, patient denies any bowel bladder retention/incontinence, no focal weakness, no perianal numbness, no history of IV drug use, patient presents for evaluation Allergies: Coded Allergies: ASHWIN INHIBITORS (Unverified Allergy, Unknown, 07/31/18) CALCIUM CHANNEL BLOCKING AGENTS-DIH (Verified Allergy, Unknown, 07/31/18) PENICILLINS (Verified Allergy, Unknown, 07/31/18) Uncoded Allergies: CALCIUM CHANNEL BLOCKERS (Allergy, Unknown, 03/14/16) DIHYDROPYRIDINES (Allergy, Unknown, 03/14/16) Patient History Past Medical History: see triage record Last Menstrual Period: menopause Now: No Reviewed Nursing Documentation: PMH: Agreed; PSxH: Agreed Nursing Documentation-PMH Hx Cardiac Problems: Yes - DVT(Rt leg), IVC filter insertion in 11/2014 Hx Hypertension: Yes Hx Diabetes: Yes - DM2 Hx Gastrointestinal Problems: No - Fibroid removal in 1979 Review of Systems All Other Systems: negative except mentioned in HPI Physical Exam Vital Signs Date Time Temp Pulse Resp B/P (MAP) Pulse Ox O2 Delivery O2 Flow Rate FiO2 03/14/19 07:27 98.2 67 16 149/86 (107) 99 Room Air Sp02 EP Interpretation: reviewed, normal General Appearance: well appearing, no apparent distress, alert Head: normocephalic, atraumatic Eyes: bilateral eye PERRL, bilateral eye EOMI ENT: uvula midline, moist mucus membranes Neck: supple, thyroid normal, supple/symm/no masses Respiratory: lungs clear, no respiratory distress, no retraction, no accessory muscle use Cardiovascular #1: normal peripheral pulses, regular rate, rhythm, no edema, no gallop, no murmur Gastrointestinal: non tender, soft, no guarding, no rebound Musculoskeletal: other - Left lower backpackers manager to palpation, no midline tenderness, 5 out of 5 strength bilateral lower extremities at the ankle knee hip, flexion extension 5 out of 5, patient is able to ambulate without any issues Neurologic: alert, oriented x3 Psychiatric: mood/affect normal Skin: no rash, warm/dry Medical Decision Making Diagnostic Impression: Primary Impression: Back pain Qualified Codes: M54.5 - Low back pain ER Course The patient presents with acute onset of back pain after cleaning her house. Clinically this patient can be ruled out for serious pathology given there is a completely normal neurological exam, no history of IV drug use, and no history of bowel or bladder incontinence, no perianal numbness/tingling, no constipation or urinary retention. Once the patient's pain was adequately controlled, the patient was able to ambulate and be discharged in stable condition with anticipatory guidance provided. Patient with MSK back pain, Toradol, Decadron given, disposition home with return precautions, counseled patient that she cannot receive opioids Last Vital Signs Date Time Temp Pulse Resp B/P (MAP) Pulse Ox O2 Delivery O2 Flow Rate FiO2 03/14/19 07:33 98.2 80 16 149/86 99 Room Air Disposition: HOME, SELF-CARE Condition: Stable Scripts Naproxen* (NAPROSYN*) 250 Mg Tablet 250 MG ORAL BID PRN for For Pain, #20 TAB 0 Refills Prov: Will Knight MD 03/14/19 Methocarbamol* (ROBAXIN-750*) 750 Mg Tablet 750 MG PO QID, #28 TAB 0 Refills Prov: Will Knight MD 03/14/19 Referrals: [facility] Dontrell Cruz [facility] Patient Instructions: Back Pain, Adult Additional Instructions: The patient was provided with discharge instructions, notified to follow-up with a primary care doctor and or specialist in the next 24-48 hours, and to return to the ED if they have worsening of their symptoms. Please note that this report is being documented using [employer] technology. This can lead to erroneous entry secondary to incorrect interpretation by the dictating instrument. Will Knight MD Mar 14, 2019 07:54
[2019-03-14 08:00] VITALS: BP 133/75
--- NOTE | 2019-03-14 08:00 | NUR ---
ER DISCHARGE NOTE: Patient is cleared to be discharged per ERMD, pt is aox4, on room air, with stable vital signs. pt was given dc and paper/electronic prescription instructions, pt was able to verbalize understanding, pt id band removed. pt is able to ambulate with steady gait. pt took all belongings.
== END 2019-03-14 08:00 | disposition home or self-care (01) ==
LOC: EMR 07:54
DX: M54.5 Low back pain (principal); Z88.0 Allergy status to penicillin; Z88.8 Allergy status to other drugs, medicaments and biological substances; I10 Essential (primary) hypertension; E11.9 Type 2 diabetes mellitus without complications; Z86.718 Personal history of other venous thrombosis and embolism
CPT/HCPCS: 96372; 99283; J1100

== ENCOUNTER 2019-05-09 14:25 | Emergency (ER) | payer MEDICARE, OTHER ==
[~2019-05-09] VITALS: Ht 152.4 cm; Wt 62.6 kg
[~2019-05-09 14:25] MED LIST changes: +NAPROXEN250 MG ORAL
--- NOTE | 2019-05-09 15:02 | Emergency Room Report ---
History of Present Illness General Chief Complaint: Skin Rash/Abscess Present Illness HPI 74-year-old female with history of diabetes currently controlled with metformin and no other past medical history here complaining of a pruritic and slightly painful rash in the left elbow x3 days. Patient does not recall whether she was bit by an insect denies camping, and exposure to new allergens. Patient is rating the pain 3 out of 10 and reports that started today. Denies fever and chills, pain radiation. Has not taken medication for symptom relief. Denies chest pain, shortness of breath, anaphylaxis, palpitation, abdominal pain, nausea vomiting and all other associated symptoms. Denies fever and chills. Patient has full range of motion slightly warm erythematous lesion noted on left elbow most likely secondary to insect bite Allergies: Coded Allergies: ASHWIN INHIBITORS (Unverified Allergy, Unknown, 07/31/18) CALCIUM CHANNEL BLOCKING AGENTS-DIH (Verified Allergy, Unknown, 07/31/18) PENICILLINS (Verified Allergy, Unknown, 07/31/18) Uncoded Allergies: CALCIUM CHANNEL BLOCKERS (Allergy, Unknown, 03/14/16) DIHYDROPYRIDINES (Allergy, Unknown, 03/14/16) Patient History Past Medical History: see triage record Past Surgical History: unable to obtain Pertinent Family History: none Now: No Immunizations: UTD Reviewed Nursing Documentation: PMH: Agreed; PSxH: Agreed Nursing Documentation-PMH Hx Cardiac Problems: Yes - DVT(Rt leg), IVC filter insertion in 11/2014 Hx Hypertension: Yes Hx Diabetes: Yes - DM2 Hx Gastrointestinal Problems: No - Fibroid removal in 1979 Review of Systems All Other Systems: negative except mentioned in HPI Physical Exam Vital Signs Date Time Temp Pulse Resp B/P (MAP) Pulse Ox O2 Delivery O2 Flow Rate FiO2 05/09/19 14:44 98.4 67 22 126/76 (93) 98 Room Air Sp02 EP Interpretation: reviewed, normal General Appearance: no apparent distress, alert, GCS 15, non-toxic Head: normocephalic, atraumatic Eyes: bilateral eye normal inspection, bilateral eye PERRL ENT: hearing grossly normal, normal pharynx, no angioedema, normal voice Neck: full range of motion, supple/symm/no masses Respiratory: chest non-tender, lungs clear, normal breath sounds, no rhonchi, no wheezing, speaking full sentences Cardiovascular #1: regular rate, rhythm, no edema, no murmur, normal capillary refill Gastrointestinal: normal bowel sounds, non tender, soft, non-distended, no guarding, no rebound Rectal: deferred Genitourinary: normal inspection, no CVA tenderness Musculoskeletal: back normal, gait/station normal, normal range of motion, non- tender, no calf tenderness Neurologic: alert, oriented x3, responsive, motor strength/tone normal, sensory intact, speech normal Skin: rash - mildly erythematous rash left elbow Lymphatic: no adenopathy Medical Decision Making PA Attestation All diagnoses and treatment plans were reviewed and discussed with my supervising physician Dr. Chun Diagnostic Impression: Primary Impression: Insect bite of elbow ER Course 74-year-old female with history of diabetes currently controlled with metformin and no other past medical history here complaining of a pruritic and slightly painful rash in the left elbow x3 days. Patient does not recall whether she was bit by an insect denies camping, and exposure to new allergens. Patient is rating the pain 3 out of 10 and reports that started today. Denies fever and chills, pain radiation. Has not taken medication for symptom relief. Denies chest pain, shortness of breath, anaphylaxis, palpitation, abdominal pain, nausea vomiting and all other associated symptoms. Denies fever and chills. Patient has full range of motion slightly warm erythematous lesion noted on left elbow most likely secondary to insect bite Ddx considered but are not limited to: Eczema, scabies, lice, cellulitis, insect bite of elbow Vital signs: are WNL, pt. is afebrile H&PE are most consistent with: Insect bite of elbow, antibiotics given due to diabetes status ORDERS:bactrim, hydrocortisone cream, Benadryl ED INTERVENTIONS: None required at this time. DISCHARGE: At this time pt. is stable for d/c to home. Will provide printed patient care instructions, and any necessary prescriptions. Care plan and follow up instructions have been discussed with the patient prior to discharge. The patient to avoid exposure to allergens avoid scratching the areas may increase the risk of infection take medication as directed and follow-up with your primary care provider Last Vital Signs Date Time Temp Pulse Resp B/P (MAP) Pulse Ox O2 Delivery O2 Flow Rate FiO2 05/09/19 14:44 98.4 67 22 126/76 (93) 98 Room Air Disposition: HOME, SELF-CARE Condition: Stable Scripts Diphenhydramine Hcl* (BENADRYL*) 25 Mg Capsule 25 MG ORAL Q6H PRN for Itching, #20 CAP Prov: Eliazar Cabral 05/09/19 Hydrocortisone/Aloe Vera 1%* (HYDROCORTISONE-ALOE 1% CREAM*) Y Cr 1 APPLIC TOPIC Q6H PRN for Itching, #30 GM Prov: Eliazar Cabral 05/09/19 Trimethoprim/Sulfamethoxazole 160/800* (BACTRIM DS TABLET*) 1 Each Tablet 1 TAB ORAL TWICE A DAY for 7 Days, #14 TAB Prov: Eliazar Cabral 05/09/19 Patient Instructions: Insect Bite, [id number] Additional Instructions: Take medication as directed follow-up with your primary care provider due to your diabetic status to be treated with antibiotics to prevent infection Eliazar Cabral May 09, 2019 15:02
[2019-05-09] MEDS ORDERED: HYDROCORTISONE-30 GM TOPIC (15:05)
[2019-05-09] MEDS ORDERED: BACTRIM DS TAB1 EAC1 ORAL (15:05)
[2019-05-09] MEDS ORDERED: BENADRYL25 MG ORAL (15:05)
[2019-05-09 15:20] VITALS: BP 126/76
--- NOTE | 2019-05-09 15:20 | NUR ---
ED Nurse Note: kelsi jones done no nsg orders pt seen and d/c'd by kelsi. ED Nurse Note: Pt cleared by health care Provider for discharge. DC instructions/prescription was given and explained to pt and verbalized understanding of teachings. All medical deviecs such as ID band removed. Pt is AAO x4, ambulatory and left with all personal belongings.
--- NOTE | 2019-05-09 17:12 | NUR ---
ED Nurse Note: pt walked in from home.Pt states she has a rash for 3 day on left arm itching red and swollen pt awaiting ermd karen
== END 2019-05-09 15:20 | disposition home or self-care (01) ==
LOC: EMR 15:10
DX: S50.362A Insect bite (nonvenomous) of left elbow, initial encounter (principal); I10 Essential (primary) hypertension; E11.9 Type 2 diabetes mellitus without complications; Z86.718 Personal history of other venous thrombosis and embolism; Z88.8 Allergy status to other drugs, medicaments and biological substances; Z79.84 Long term (current) use of oral hypoglycemic drugs; Z95.828 Presence of other vascular implants and grafts; Z88.0 Allergy status to penicillin; W57.XXXA Bitten or stung by nonvenomous insect and other nonvenomous arthropods, initial encounter; Y92.9 Unspecified place or not applicable
CPT/HCPCS: 99282

== ENCOUNTER 2020-09-27 12:46 | Emergency (ER) | payer MEDICARE, OTHER ==
[~2020-09-27] VITALS: Ht 152.4 cm; Wt 64.4 kg
[~2020-09-27 12:46] MED LIST changes: +BACTRIM DS TAB1 EAC1 ORAL; +HYDROCORTISONE-30 GM TOPIC
[2020-09-27 13:09] VITALS: BP 163/92
--- NOTE | 2020-09-27 13:13 | NUR ---
ED Nurse Note: pt stated that she went to [place] 4 days ago, the second day her right knee started hurting when she got up and couldn't hardly walk. she has been putting ice on it. knee is slightly edematous. denies any injuries
--- NOTE | 2020-09-27 13:56 | Emergency Room Report ---
History of Present Illness General Chief Complaint: Pain Source: Patient Present Illness HPI Patient is complaining about right knee pain. She recently went on a trip to [place]. When she returned she had pain in her right knee. She has had problems with osteoarthritis in the knee in the past. Usually is fairly well controlled. She denies any trauma. No fevers or chills. The knee is not warm and there no changes in the skin. Patient rates the pain 8/10. She is taken Tylenol with minimal relief. She denies any extremity numbness. There is pain or lower extremity swelling. She denies any chest pain or hemoptysis. She has had a DVT in her lower extremity and is concerned about this. She is not taking anticoagulation at this time. Patient denies known exposure to Covid positive contacts however she has been in [place] and traveling. She denies any fevers, chills, sore throat, cough or shortness of breath. She states she never even gets the flu. Allergies: Coded Allergies: ASHWIN INHIBITORS (Unverified Allergy, Unknown, 07/31/18) CALCIUM CHANNEL BLOCKING AGENTS-DIH (Verified Allergy, Unknown, 07/31/18) PENICILLINS (Verified Allergy, Unknown, 07/31/18) Uncoded Allergies: CALCIUM CHANNEL BLOCKERS (Allergy, Unknown, 03/14/16) DIHYDROPYRIDINES (Allergy, Unknown, 03/14/16) COVID-19 Screening Contact w/high risk pt: No Experienced COVID-19 symptoms?: No COVID-19 Testing performed BARGE PILOT: Yes COVID-19 Screening: Negative COVID-19 COVID-19 Testing Source: [employer] Patient History Past Medical History: see triage record, old chart reviewed Past Surgical History: other - Hysterectomy for fibroids Social History: Denies: smoking Social History Narrative Retired Reviewed Nursing Documentation: PMH: Agreed; PSxH: Agreed Nursing Documentation-PMH Past Medical History: No History, Except For Hx Cardiac Problems: Yes - DVT(Rt leg), IVC filter insertion in 11/2014 Hx Hypertension: Yes Hx Diabetes: Yes - DM2 Hx Gastrointestinal Problems: No - Fibroid removal in 1979 Review of Systems Constitutional: Reports: see HPI ENT: Reports: see HPI Respiratory: Reports: see HPI Musculoskeletal: Reports: see HPI Skin: Reports: see HPI Neurological: Reports: see HPI Hematologic/Lymphatic: Reports: see HPI Physical Exam Vital Signs Date Time Temp Pulse Resp B/P (MAP) Pulse Ox O2 Delivery O2 Flow Rate FiO2 09/27/20 12:50 98.2 65 16 163/92 (115) 95 Room Air Sp02 EP Interpretation: reviewed, normal General Appearance: well appearing, no apparent distress, GCS 15 Head: normocephalic Eyes: bilateral eye normal inspection, bilateral eye PERRL ENT: other - Right hand mask Neck: normal inspection, full range of motion Respiratory: normal inspection Cardiovascular #1: regular rate, rhythm Cardiovascular #2: 2+ radial (R), 2+ dorsalis pedis (R) Gastrointestinal: normal inspection Musculoskeletal: gait/station normal, no calf tenderness, tenderness - Knee with minimal effusion. Ligaments stable without drawer sign. Neurologic: alert, grossly normal Psychiatric: mood/affect normal Skin: normal color, no rash, warm/dry Medical Decision Making Diagnostic Impression: Primary Impression: Right knee pain Qualified Codes: M25.561 - Pain in right knee ER Course Patient presents with right knee pain after trip to [place]. She has a history of DVT. Differential includes DVT, osteoarthritis, gout, knees brain amongst others. Exam excludes DVT. Ligaments are stable. She states she has osteoarthritis and exam is most consistent with exacerbation of this condition. X-rays have been taken in the past and are not indicated at this time. The patient is given a dose of ibuprofen in the emergency department. Discussed clinical impression with patient and treatment plan. Xrays from 04/2018: Negative for acute injury. Mild arthrosis Patient improved. No medical emergency at this time. Patient stable for outpatient observation and treatment. Last Vital Signs Date Time Temp Pulse Resp B/P (MAP) Pulse Ox O2 Delivery O2 Flow Rate FiO2 09/27/20 13:09 98.2 16 163/92 95 Room Air 09/27/20 12:50 65 Status: improved Disposition: HOME, SELF-CARE Condition: Improved Scripts Ibuprofen* (MOTRIN*) 600 Mg Tablet 600 MG ORAL Q6H PRN for FOR PAIN, #20 TAB 0 Refills Prov: Pastor Mera MD 09/27/20 Pastor Mera MD Sep 27, 2020 13:55
[2020-09-27] MEDS ORDERED: IBUPROFEN600 M1 ORAL (13:57)
--- NOTE | 2020-09-27 14:08 | NUR ---
ER DISCHARGE NOTE: Patient is cleared to be discharged per ERMD, pt is aox4, on room air, with stable vital signs. pt was given dc and prescription instructions, pt was able to verbalize understanding. pt is able to ambulate with steady gait. pt took all belongings.
== END 2020-09-27 15:59 | disposition home or self-care (01) ==
LOC: EMR 15:09
DX: M25.561 Pain in right knee (principal); E11.9 Type 2 diabetes mellitus without complications; I10 Essential (primary) hypertension; Z79.84 Long term (current) use of oral hypoglycemic drugs; Z86.718 Personal history of other venous thrombosis and embolism; Z90.710 Acquired absence of both cervix and uterus; Z88.0 Allergy status to penicillin; Z88.8 Allergy status to other drugs, medicaments and biological substances
CPT/HCPCS: 99282